=== PATIENT | male | born 1950 | race Caucasian/White ===

== ENCOUNTER 2023-07-10 16:15 | Outpatient (OUT) | payer BC, SELFPAY ==
--- NOTE | 2023-07-10 | XR_ITS ---
The [address] [address] Patient Name: ROBYN RUTH MRN: [id number] date: 1950 Sex: M Assigned Patient Location: LAB Current Patient Location: Accession/Order Number: [id number] Exam Date: 07/10/2023 16:40 Report Date: 07/11/2023 07:49 At the request of: NON-STAFF PHYSICIAN Procedure: XR abdomen 1V EXAMINATION: XR abdomen 1V HISTORY: Z87.442 ; history of kidney stones COMPARISON: XR KUB 03/08/2022: FINDINGS: KIDNEY/URETER - RIGHT: Atherosclerotic calcifications versus stones. KIDNEY/URETER - LEFT: Atherosclerotic calcifications versus stones overlying superior left hilum. PELVIS: Stable pelvic calcifications compatible with phleboliths. BOWEL: No abnormal dilation or deviation. BONES: No acute abnormality. OTHER: Negative. No abnormal gaseous collections. XR/XR abdomen 1V IMPRESSION: 1. Calcifications overlying the kidneys favor atherosclerotic disease. No convincing urinary tract calculi. Electronically authenticated by: AMY AMAYA Date: 07/11/2023 07:49
[2023-07-10 17:32] LABS: Prostate Specific Antigen Dx 1.84 ng/mL (<=4.00)
== END 2023-07-10 16:16 | disposition home or self-care (01) ==
PROVIDERS: PCP Family Medicine
DX: Z87.442 Personal history of urinary calculi (principal)
CPT/HCPCS: 36415; 74018; 84153

== ENCOUNTER 2024-07-07 09:49 | Outpatient (OUT) | payer BC, MEDICARE, SELFPAY ==
--- NOTE | 2024-07-07 | XR_ITS ---
The [address] [address] Patient Name: ROBYN RUTH MRN: [id number] date: 1950 Sex: M Assigned Patient Location: LAB Current Patient Location: Accession/Order Number: [id number] Exam Date: 07/07/2024 10:15 Report Date: 07/08/2024 06:24 At the request of: JACKI LITTLE Procedure: XR abdomen 1V EXAMINATION: XR abdomen 1V HISTORY: KIDNEY STONE COMPARISON: XR abdomen 07/10/2023 FINDINGS: KIDNEY/URETER - RIGHT: Several calcifications projecting over kidney. KIDNEY/URETER - LEFT: Several calcifications projecting over kidney. PELVIS: No appreciable ureteral stones. Stable pelvic calcifications. BOWEL: No abnormal dilation or deviation. BONES: No acute abnormality. OTHER: Negative. No abnormal gaseous collections. XR/XR abdomen 1V IMPRESSION: 1. Grossly stable bilateral nephrolithiasis versus artifact from overlying atherosclerotic disease. Electronically authenticated by: AMY AMAYA Date: 07/08/2024 06:24
[2024-07-07 12:28] LABS: Prostate Specific Antigen Dx 1.84 ng/mL (<=4.00)
== END 2024-07-07 09:50 | disposition home or self-care (01) ==
PROVIDERS: PCP Family Medicine; Visit Provider Urology
DX: N20.0 Calculus of kidney (principal); R97.20 Elevated prostate specific antigen [PSA]; Z80.42 Family history of malignant neoplasm of prostate
CPT/HCPCS: 36415; 74018; 84153

== ENCOUNTER 2025-01-31 05:11 | Emergency (ER) | payer BC, MEDICARE, SELFPAY ==
[2025-01-31] VITALS (24 sets, daily range): BP systolic 144–167; BP diastolic 61–82; PULSE 59–92; TEMP 37; O2SAT 88–97; BMI 26.4
--- OUTSIDE RECORDS SUMMARY | 2025-01-31 05:28 | XMS_ITS | CCD ---
Author Organization [facility] Care Team Providers Care Cement Side Laster Name Role Phone KIP BENAVIDES Unavailable Unavailable KIP BENAVIDES Unavailable Unavailable KIP BENAVIDES Unavailable Unavailable Milagro Sosa Unavailable Unavailable Unavailable MILAGRO SOSA Primary Care Physician Lonny Saleh Referring Unavailable Lonny Saleh Attending Unavailable Dr. Milagro Sosa Primary Care Unavailab MILAGRO Fall Primary Care Physician [phone] JAVED HURLEY Consulting Unavailable JAVED HURLEY Admitting Unavailable ROBERT ., DR MILAGRO Lara Primary Care Unavailable JAVED HURLEY Attending Unavailable ROBERT ., DR MILAGRO Lara Primary Care Unavailable VEENA Aguirre, DR AMERICA Schuster Attending Unavaila treasure Aguirre, DR AMERICA Schuster Consulting Unavaila treasure Aguirre, DR AMERICA Schuster Admitting Unavaila LESLY Glynn Consulting Unavailable Javed Hurley Primary Care Physician Milagro Sosa MD Primary Care Provider [phone] Lonny Saleh DO Unavailable [phone] LONNY SALEH Attending Unavailable MILAGRO SOSA Primary Care Unavailable Alejandro HAYES Attending Unavailable Javed Hurley Admitting Unavailable Javed Hurley Attending Unavailable Javed Hurley Attending Unavailable Javed Hurley Attending Unavailable Alejandro HAYES Attending Unavailable Allergies Allergy Classification Reported Allergen(s) Allergy Type Date of Onset Reaction(s) Facility (8 sources) cinnamon preparation; Translations: [CINNAMON] Drug Allergy 1 Unknown (qualifier value) [employer] Repository (9 sources) lisinopril; Translations: [LISINOPRIL] Drug Allergy 1 Coughing - function (qualifier value), Other [facility] Repository (5 sources) Lisinopril; Translations: [Zestril TABS] Drug Allergy [facility] DO Work Phone: (1 source) Lisinopril; Translations: [Zestril] Drug Allergy [facility] Repository Medications Current Medications Medication Drug Class(es) Dates Sig (Normalized) Sig (Original) amLODIPine 5 mg oral tablet (13 sources) Dihydropyridine Calcium Channel Pierre Start: 08-01-2020 End: 01-28-2025 take 1 tablet by mouth once daily amLODIPine 5 mg Tab See Instructions, TAKE 1 TABLET BY MOUTH EVERY DAY, # 90 tab(s), Refills(s) 3, Pharmacy: [facility] STORE [id number], 178, cm, 08/11/23 13:06:00 EDT, Height/Length Dosing, 86.8, kg, 08/11/23 13:06:00 EDT, Weight Dosing Start Date: 11/27/23 Status: Ordered aspirin 81 mg delayed release oral tablet (12 sources) Platelet Aggregation Inhibitor, Nonsteroidal Anti-inflammatory Drug Start: 08-01-2020 take 1 mg by mouth once daily aspirin 81 mg Oral EC Tab mg tab(s), Oral, Daily, Refills(s) 0 Start Date: 08/01/20 Status: Ordered Start: 08-01-2020 take 1 mg by mouth once daily aspirin 81 mg Oral EC Tab mg tab(s), Oral, Daily, Refills(s) 0 Start Date: 08/01/20 Status: Ordered dutasteride 0.5 mg oral capsule (12 sources) 5-alpha Reductase Inhibitor Start: 08-25-2024 take 1 capsule by mouth once daily dutasteride 0.5 mg Cap 0.5 mg = 1 cap(s), Oral, Daily, # 90 cap(s), Refills(s) 3, Pharmacy: [facility]/pharmacy #[id number], 173, cm, 07/16/24 8:27:00 EDT, Height/Length Dosing, 83.5, kg, 07/16/24 8:27:00 EDT, Weight Dosing Start Date: 08/25/24 Status: Ordered Start: 08-21-2021 take 1 capsule by mo [facility] once daily dutasteride 0.5 mg Cap 0.5 mg = 1 cap(s), Oral, Daily, # 90 cap(s), Refills(s) 3, [id number], cm, 08/11/23 13:06:00 EDT, Height/Length Dosing, 86.8, kg, 08/11/23 13:06:00 EDT, Weight Dosing Start Date: 08/27/23 Status: Ordered latanoprost 0.05 mg/ml ophthalmic solution (6 sources) Prostaglandin Analog Start: 02-04-2023 take 1 drop(s) into the eye(s) once daily at bedtime latanoprost Opth 0.005% Erica 1 drop(s), OPTH, Once a day (at bedtime), 2.5 mL, Refill(s) 0, each eye Start Date: 02/04/23 Status: Ordered take 1 drop(s) into the eye(s) once daily Latanoprost 0.005 % Ophthalmic Solution INSTILL 1 DROP INTO AFFECTED EYE(S) ONCE DAILY DIRECTED. Quantity: 0 Refills: 0 Ordered: 16-Jan-2023 DO Active metFORMIN hydrochloride 500 mg oral tablet (13 sources) Biguanide Start: 06-07-2024 End: 12-25-2024 MetFORMIN (Eqv-Glucophage XR) 500 mg oral tablet, extended release 1,000 mg = 2 tab(s), Oral, BID, # 120 tab(s), Refills(s) 0, [id number], cm, 07/16/24 8:27:00 EDT, Height/Length Dosing, 83.5, kg, 07/16/24 8:27:00 EDT, Weight Dosing Start Date: 11/25/24 Stop Date: 12/25/24 Status: Ordered Start: 05-07-2023 take 2 tablets by [facility] twice daily MetFORMIN (Eqv-Glucophage XR) 500 mg oral tablet, extended release See Instructions, TAKE 2 TABLETS BY MOUTH TWICE A DAY, # 360 tab(s), Refills(s) 0, Pharmacy: [facility] STORE [id number], 177.8, cm, 02/25/23 14:14:00 EDT, Height/Length Dosing, 85.6, kg, 02/25/23 14:14:00 EDT, Weight Dosing Start Date: 05/07/23 Status: Ordered Start: 08-01-2020 take 1 mg by mouth once daily metformin 500 mg ER Tab mg tab(s), Oral, Daily, Refills(s) 0 Start Date: 08/01/20 Status: Ordered take 1 tablet by hailee th four times daily at mealtime metFORMIN (Glucophage) 500 mg tablet Take 1 tablet (500 mg) by mouth 4 times a day with meals. 0 Active take 1 tablet by hailee th every twelve hours at mealtime metFORMIN HCl - 500 MG Oral Tablet TAKE 1 TABLET EVERY 12 HOURS WITH FOOD. Quantity: 0 Refills: 0 Ordered: 14-Jan-2022 Active metoprolol tartrate 25 mg oral tablet (13 sources) beta-Adrenergic Pierre Start: 01-29-2024 End: 01-28-2025 take 1 tablet by mouth once daily metoprolol tartrate (Lopressor) 25 mg tablet Indications: Hypertension, unspecified type Take 1 tablet (25 mg) by mouth once daily. 90 tablet 3 01/29/2024 01/28/2025 Active Start: 11-27-2023 take 1 tablet by hailee th once daily metoprolol 25 mg ER Tab 25 mg = 1 tab(s), Oral, Daily, # 90 tab(s), Refills(s) 4, Pharmacy: [facility]/pharmacy #[id number], 178, cm, 08/11/23 13:06:00 EDT, Height/Length Dosing, 86.8, kg, 08/11/23 13:06:00 EDT, Weight Dosing Start Date: 11/27/23 Status: Ordered Start: 08-01-2020 take 1 mg by mouth once daily metoprolol 25 mg ER Tab mg tab(s), Oral, Daily, Refills(s) 0 Start Date: 08/01/20 Status: Ordered take 1 tablet by hailee th twice daily Metoprolol Tartrate 25 MG Oral Tablet TAKE 1 TABLET TWICE DAILY. Quantity: 180 Refills: 3 Ordered: 14-Jan-2022 Lonny Saleh DO Active pravastatin sodium 80 mg oral tablet (13 sources) HMG-CoA Reductase Inhibitor Start: 08-01-2020 End: 01-28-2025 take 1 tablet by mouth once daily pravastatin 80 mg Tab 80 mg = 1 tab(s), Oral, Daily, # 90 tab(s), Refills(s) 4, Pharmacy: [facility]/pharmacy #[id number], 178, cm, 08/11/23 13:06:00 EDT, Height/Length Dosing, 86.8, kg, 08/11/23 13:06:00 EDT, Weight Dosing Start Date: 11/27/23 Status: Ordered tamsulosin hydrochloride 0.4 mg oral capsule (12 sources) alpha-Adrenergic Pierre Start: 08-25-2024 take 1 capsule by mouth once daily Flomax 0.4 mg Cap 0.4 mg = 1 cap(s), Oral, Daily, # 90 cap(s), Refills(s) 3, Pharmacy: [facility]/pharmacy #[id number], 173, cm, 07/16/24 8:27:00 EDT, Height/Length Dosing, 83.5, kg, 07/16/24 8:27:00 EDT, Weight Dosing Start Date: 08/25/24 Status: Ordered Start: 08-23-2021 take 1 capsule by mo [facility] once daily Flomax 0.4 mg Cap 0.4 mg = 1 cap(s), Oral, Daily, # 90 cap(s), Refills(s) 3, Pharmacy: [facility]/pharmacy #[id number], 178, cm, 08/11/23 13:06:00 EDT, Height/Length Dosing, 86.8, kg, 08/11/23 13:06:00 EDT, Weight Dosing Start Date: 08/27/23 Status: Ordered Timolol (12 sources) beta-Adrenergic Pierre Start: 08-01-2020 Timolo l Maleate (Eqv-Istalol) 0.5% ophthalmic solution drop(s), Eye-Both, Daily, Refill(s) 0 Start Date: 08/01/20 Status: Ordered take 1 drop(s) into the eye(s) every twelve hours timolol (Timoptic) 0.5 % ophthalmic solution Administer 1 drop into affected eye(s) every 12 hours. 0 Active take 1 drop(s) into the eye(s) once daily Timolol Maleate 0.5 % Ophthalmic Solutio n INSTILL 1 DROP IN BOTH EYES EVERY 12 HOURS DAILY. Quantity: 0 Refills: 0 Ordered: 14-Jan-2022 DO Active traZODone hydrochloride 150 mg oral tablet (12 sources) Serotonin Reuptake Inhibitor Start: 11-25-2024 End: 12-25-2024 take 1 tablet by mouth once daily at bedtime traZODONE 150 mg Tab 150 mg = 1 tab(s), Oral, Once a day (at bedtime), # 30 tab(s), Refills(s) 0, Pharmacy: [facility]/pharmacy #[id number], 173, cm, 07/16/24 8:27:00 EDT, Height/Length Dosing, 83.5, kg, 07/16/24 8:27:00 EDT, Weight Dosing Start Date: 11/25/24 Stop Date: 12/25/24 Status: Ordered Start: 05-23-2024 take 1 tablet by hailee th once daily at bedtime traZODONE 150 mg Tab See Instructions, TAKE 1 TABLET BY MOUTH EVERYDAY AT BEDTIME, # 90 tab(s), Refills(s) 1, Pharmacy: [facility] STORE [id number], 178, cm, 08/11/23 13:06:00 EDT, Height/Length Dosing, 86.8, kg, 08/11/23 13:06:00 EDT, Weight Dosing Start Date: 05/23/24 Status: Ordered Start: 05-22-2023 take 1 tablet by hailee th once daily at bedtime traZODONE 150 mg Tab See Instructions, TAKE 1 TABLET BY MOUTH EVERYDAY AT BEDTIME, # 90 tab(s), Refills(s) 1, Pharmacy: [facility] STORE [id number], 177.8, cm, 02/25/23 14:14:00 EDT, Height/Length Dosing, 85.6, kg, 02/25/23 14:14:00 EDT, Weight Dosing Start Date: 05/22/23 Status: Ordered Start: 08-01-2020 take 1 mg by mouth twice daily traZODONE 100 mg Tab mg tab(s), Oral, BID, Refills(s) 0 Start Date: 08/01/20 Status: Ordered take 1 tablet by hailee th once daily traZODone (Desyrel) 100 mg tablet Take 1 tablet (100 mg) by mouth once daily. 0 Active valsartan 40 mg oral tablet (13 sources) Angiotensin 2 Receptor Pierre Start: 08-01-2020 End: 01-28-2025 take 1 tablet by mouth twice daily valsartan 40 mg Tab 40 mg = 1 tab(s), Oral, BID, # 180 tab(s), Refills(s) 4, Pharmacy: [facility]/pharmacy #[id number], 178, cm, 08/11/23 13:06:00 EDT, Height/Length Dosing, 86.8, kg, 08/11/23 13:06:00 EDT, Weight Dosing Start Date: 11/27/23 Status: Ordered take 1 tablet by mouth once marino y Valsartan 40 MG Oral Tablet TAKE 1 TABLET DAILY. Quantity: 90 Refills: 3 Ordered: 14-Jan-2022 Lonny Saleh DO Active Problems Active Problems Problem Classification Problem Date Documented Date Episodic/Chronic Calculus of urinary tract (15 sources) History of calculus of kidney; Translations: [Personal history of urinary calculi] Onset: 03-08-2022 Episodic Cardiac dysrhythmias (18 sources) Paroxysmal atrial fibrillation; Translations: [Atrial fibrillation] Onset: 12-02-2023 07-26-2020 Chronic Complication of device; implant or graft (4 sources) Arteriosclerosis of arterial coronary artery bypass graft; Translations: [Atherosclerosis of coronary artery bypass graft(s) without angina pectoris] Onset: 12-02-2023 01-29-2024 Chronic Coronary atherosclerosis and other heart disease (15 sources) Coronary arteriosclerosis; Translations: [Coronary atherosclerosis of unspecified type of vessel, [place] or graft] Onset: 12-02-2023 07-26-2020 Chronic Diabetes mellitus without complication (12 sources) Diabetes mellitus; Translations: [Diabetes mellitus without mention of complication, type II or unspecified type, not stated as uncontrolled] Onset: 12-02-2023 07-26-2020 Chronic Diabetes mellitus without complication (2 sources) Diabetes mellitus without complication; Translations: [Type 2 diabetes mellitus without complications ( )] Onset: 11-11-2016 Disorders of lipid metabolism (15 sources) Hyperlipidemia; Translations: [Other and unspecified hyperlipidemia] Onset: 12-02-2023 07-26-2020 Chronic Essential hypertension (15 sources) Hypertensive disorder; Translations: [Unspecified essential hypertension] Onset: 12-02-2023 07-26-2020 Chronic Genitourinary symptoms and ill-defined conditions (14 sources) Blood in urine; Translations: [Hematuria, unspecified] Onset: 03-12-2022 Episodic Hyperplasia of prostate (9 sources) Benign prostatic hypertrophy with outflow obstruction; Translations: [Benign prostatic hyperplasia with lower urinary tract symptoms] Onset: 03-12-2022 Chronic Miscellaneous mental health disorders (5 sources) Primary insomnia 02-04-2023 Chronic Other and ill-defined cerebrovascular disease (6 sources) Cerebrovascular disease 07-26-2020 Chronic Other circulatory disease (7 sources) History of aortofemoral bypass surgery; Translations: [Personal history of surgery to heart and great vessels, presenting hazards to health] Onset: 12-02-2023 01-29-2024 Chronic Other circulatory disease (2 sources) Presence of other vascular implants and grafts; Translations: [Presence of other vascular implants and grafts] Onset: 12-02-2023 Chronic Other diseases of kidney and ureters (1 source) Urinary tract obstruction; Translations: [Other obstructive and reflux uropathy] Onset: 03-12-2022 Episodic Other nutritional; endocrine; and metabolic disorders (6 sources) Overweight in adulthood with body mass index of 25 or more but less than 30; Translations: [Overweight] 12-06-2024 Episodic Other nutritional; endocrine; and metabolic disorders (1 source) Body mass index 25-29 - overweight 12-06-2024 Episodic Other screening for suspected conditions (not mental disorders or infectious disease) (13 sources) Raised prostate specific antigen; Translations: [Elevated prostate specific antigen [PSA]] Onset: 03-08-2022 Episodic Other upper respiratory infections (1 source) Acute upper respiratory infection 02-25-2023 Episodic Peripheral and visceral atherosclerosis (12 sources) Peripheral vascular disease, unspecified; Translations: [PAD (peripheral artery disease)] Onset: 12-02-2023 07-26-2020 Chronic Residual codes; unclassified (6 sources) FH: Cardiovascular disease 07-26-2020 Episodic Residual codes; unclassified (1 source) Insomnia 07-26-2020 Episodic Residual codes; unclassified (1 source) Pain, unspecified; Translations: [PAIN UNSPECIFIED] Onset: 03-01-2023 Episodic Residual codes; unclassified (2 sources) Family history of cancer; Translations: [Family history of malignant neoplasm of prostate] Onset: 07-11-2023 Episodic Residual codes; unclassified (3 sources) Family history of prostate cancer 07-11-2023 Episodic Screening and history of mental health and substance abuse codes (9 sources) Ex-smoker; Translations: [Personal history of tobacco use] Onset: 01-29-2024 01-29-2024 Episodic Transient cerebral ischemia (6 sources) 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 Unclassified (1 source) Encounter for screening for malignant neoplasm of prostate / Z12.5(ICD-10) Onset: 11-18-2017 Unclassified (3 sources) COUGH, UNSPECIFIED; Translations: [COUGH, UNSPECIFIED] Onset: 03-01-2023 Unclassified (1 source) CONTACT W/AND (SUSP) EXPOS COVID-19; Translations: [CONTACT W/AND (SUSP) EXPOS COVID-19] Onset: 03-01-2023 Unclassified (1 source) Non-smoker 12-06-2024 Past or Other Problems Problem Classification Problem Date Documented Da te Episodic/Chronic Unclassified (1 source) Encounter for screening for malignant neoplasm of prostate; Translations: [Encounter for screening for malignant neoplasm of prostate] Onset: 11-18-2017 Unclassified (1 source) COUGH, UNSPECIFIED; Translations: [COUGH, UNSPECIFIED] Onset: 02-25-2023 Unclassified (1 source) Onset: 01-29-2024 01-29-2024 Results Test Name Value Interpretation Reference Range Facility CBC w/ Auto Diffon 5 Basophils/100 WBC (Bld) 0.3 % Normal 0.0-2.0 [facility] Comment on above: Performed By: #### 2 [id number] #### [facility] [address] [place] [address] Basophils/Leukocytes Auto (Bld) [Pure # fraction] 0.0 E9/L Normal 0.0-0.2 [facility] Comment on above: Performed By: #### 2 [id number] #### [facility] [address] [place] [address] Eosinophils (Bld) [#/Vol] 0.1 E9/L Normal 0.0-0.5 [facility] Comment on above: Performed By: #### 2 [id number] #### [facility] [address] [place] [address] Eosinophils/100 WBC (Bld) 0.9 % Normal 0.0-8.0 [facility] Comment on above: Performed By: #### 2 [id number] #### [facility] [address] [place] [address] Erythrocyte distribution width (RBC) [Ratio] 13.9 % Normal 10.9-14.2 [facility] Comment on above: Performed By: #### 2 [id number] #### [facility] [address] [place] [address] Hematocrit (Bld) [Volume fraction] 45.7 % Normal 37.7-49.0 [facility] Comment on above: Performed By: #### 2 [id number] #### [facility] [address] [place] [address] Hemoglobin (Bld) [Mass/Vol] 15.4 g/dL Normal 13.5-17.5 [facility] Comment on above: Performed By: #### 2 [id number] #### [facility] [address] [place] [address] Lymphocytes (Bld) [#/Vol] 1.7 E9/L Normal 1.0-4.0 [facility] Comment on above: Performed By: #### 2 [id number] #### [facility] [address] [place] [address] Lymphocytes/100 WBC (Bld) 21.5 % Normal 14.0-50.0 [facility] Comment on above: Performed By: #### 2 [id number] #### [facility] [address] [place] [address] MCH (RBC) [Entitic mass] 31.7 pg Normal 27.0-34.0 [facility] Comment on above: Performed By: #### 2 [id number] #### [facility] [address] [place] [address] MCHC (RBC) [Mass/Vol] 33.8 g/dL Normal 31.4-36.0 [facility] Comment on above: Performed By: #### 2 [id number] #### [facility] [address] [place] [address] MCV (RBC) [Entitic vol] 93.7 fL Normal 80.0-100.0 [facility] Comment on above: Performed By: #### 2 [id number] #### [facility] [address] [place] [address] Monocytes (Bld) [#/Vol] 0.3 E9/L Normal 0.2-1.0 [facility] Comment on above: Performed By: #### 2 [id number] #### [facility] [address] [place] [address] Neutrophils (Bld) [#/Vol] 5.7 E9/L Normal 2.0-7.5 [facility] Comment on above: Performed By: #### 2 [id number] #### [facility] [address] [place] [address] Neutrophils/100 WBC (Bld) 73.3 % Normal 36.0-75.0 [facility] Comment on above: Performed By: #### 2 [id number] #### [facility] [address] [place] [address] Platelet 264.0 E9/L Normal 150.0-500.0 [facility] Comment on above: Performed By: #### 2 [id number] #### [facility] [address] [place] [address] Platelet mean volume (Bld) [Entitic vol] 8.5 fL Normal 6.4-10.8 [facility] Comment on above: Performed By: #### 2 [id number] #### [facility] [address] [place] [address] RBC (Bld) [#/Vol] 4.9 E12/L Normal 4.3-5.9 [facility] Comment on above: Performed By: #### 2 [id number] #### [facility] [address] [place] [address] WBC corrected for nucl RBC Auto (Bld) [#/Vol] 7.8 E9/L Normal 4.0-11.0 [facility] Comment on above: Performed By: #### 2 [id number] #### [facility] [address] [place] [address] CMPon 12-07-2024 Albumin [Mass/Vol] 4.7 g/dL Normal 3.3-5.0 [facility] Comment on above: Performed By: #### 2 [id number] #### [facility] [address] [place] [address] Albumin/Globulin (S) [Mass conc ratio] 1.7 Normal 1.1-2.2 [facility] Comment on above: Performed By: #### 2 [id number] #### [facility] [address] [place] [address] ALP [Catalytic activity/Vol] 64 Int._Unit/L Normal 21-98 [facility] Comment on above: Performed By: #### 2 [id number] #### [facility] [address] [place] [address] ALT No additional P-5'-P [Catalytic activity/Vol] 18 Int._Unit/L Normal 6-46 [facility] Comment on above: Performed By: #### 2 [id number] #### [facility] [address] [place] [address] Anion gap [Moles/Vol] 13 mmol/L Normal 6-16 [facility] Comment on above: Performed By: #### 2 [id number] #### [facility] [address] [place] [address] AST [Catalytic activity/Vol] 19 Int._Unit/L Normal 5-43 [facility] Comment on above: Performed By: #### 2 [id number] #### [facility] [address] [place] [address] Bilirubin [Mass/Vol] 0.8 mg/dL Normal 0.0-1.1 [facility] Comment on above: Performed By: #### 2 [id number] #### [facility] [address] [place] [address] Calcium [Mass/Vol] 9.7 mg/dL Normal 8.9-11.1 [facility] Comment on above: Performed By: #### 2 [id number] #### [facility] [address] [place] [address] Chloride [Moles/Vol] 104 mmol/L Normal 101-111 [facility] Comment on above: Performed By: #### 2 [id number] #### [facility] [address] [place] [address] CO2 [Moles/Vol] 25 mmol/L Normal 21-31 [facility] Comment on above: Performed By: #### 2 [id number] #### [facility] [address] [place] [address] Creatinine [Mass/Vol] 0.9 mg/dL Normal 0.5-1.3 [facility] Comment on above: Performed By: #### 2 [id number] #### [facility] [address] [place] [address] Globulin (S) [Mass/Vol] 2.7 g/dL Normal 1.4-4.0 [facility] Comment on above: Performed By: #### 2 [id number] #### [facility] [address] [place] [address] Glucose [Mass/Vol] 164 mg/dL Normal 55-199 [facility] Comment on above: Performed By: #### 2 [id number] #### [facility] [address] [place] [address] Potassium [Moles/Vol] 4.4 mmol/L Normal 3.5-5.3 [facility] Comment on above: Performed By: #### 2 [id number] #### [facility] [address] [place] [address] Protein [Mass/Vol] 7.4 g/dL Normal 6.0-7.8 [facility] Comment on above: Performed By: #### 2 [id number] #### [facility] [address] [place] [address] Sodium [Moles/Vol] 138 mmol/L Normal 135-145 [facility] Comment on above: Performed By: #### 2 [id number] #### [facility] [address] [place] [address] Urea nitrogen [Mass/Vol] 21 mg/dL Normal 5-21 [facility] Comment on above: Performed By: #### 2 [id number] #### [facility] [address] [place] [address] Urea nitrogen/Creatinine [Mass ratio] 23 No Units High 10-20 [facility] Comment on above: Performed By: #### 2 [id number] #### [facility] [address] [place] [address] [id number] 12-07-2024 HbA1c (Bld) [Mass fraction] 6.9 % High <=5.9 [facility] Comment on above: Performed By: #### 7 [id number] #### [facility] [address] [place] [address] Lipid Panelon 12-07-2024 Cholesterol [Mass/Vol] 121 mg/dL Normal 120-200 [facility] Comment on above: Performed By: #### 2 [id number] #### [facility] [address] [place] [address] Cholesterol in HDL [Mass/Vol] 44 mg/dL Invalid Interpretation Code [facility] Comment on above: Result Comment: '>= 60 LOW RISK' '<= 40 HIGH RISK' Performed By: #### 2 [id number] #### [facility] [address] [place] [address] Cholesterol in LDL [Mass/Vol] 60 mg/dL Normal <=129 [facility] Comment on above: Performed By: #### 2 [id number] #### [facility] [address] [place] [address] Cholesterol in VLDL [Mass/Vol] 45 mg/dL High 7-40 [facility] Comment on above: Performed By: #### 2 [id number] #### [facility] [address] [place] [address] Triglyceride [Mass/Vol] 223 mg/dL High <=149 [facility] Comment on above: Performed By: #### 2 [id number] #### [facility] [address] [place] [address] U Microalbon 12-07-2024 Albumin DL <= 20 mg/L (U) [Mass/Vol] 2.7 mg/dL High 0.0-1.9 [facility] Comment on above: Performed By: #### [id number] #### [facility] [address] [place] [address] eGFRon 12-07-2024 eGFR 89 mL/min/1.73 m2 Normal >=59 [facility] Comment on above: Performed By: #### [id number] #### [facility] [address] [place] [address] Ambulatory Visit Summaryon 0 12-06-2024 Ambulatory Visit Summary Ambulatory Visit Summary ROBYN SALAZAR :1950 Visit Date:12/06/2024 Ambulatory Visit Instructions Your Diagnosis Atrial flutter Paroxysmal atrial fibrillation Type 2 diabetes mellitus without complication, without long-term current use of insulin Elevated PSA Hypertension CAD (coronary artery disease) BMI 28.0-28.9,adult Overweight (BMI 25.0-29.9) Nonsmoker Primary insomnia Your Care Team Attending Physician - Javed Hurley MD Primary Care Physician - Javed Hurley MD This Is Your Medications List amlodipine (amLODIPine 5 mg Tab) aspirin (aspirin 81 mg Oral EC Tab) dutasteride (dutasteride 0.5 mg Cap) latanoprost ophthalmic (latanoprost Opth 0.005% Erica) metformin (MetFORMIN (Eqv-Glucophage XR) 500 mg oral tablet, extended release) metformin (MetFORMIN (Eqv-Glucophage XR) 500 mg oral tablet, extended release) metoprolol (metoprolol 25 mg ER Tab) pravastatin (pravastatin 80 mg Tab) tamsulosin (Flomax 0.4 mg Cap) timolol ophthalmic (Timolol Maleate (Eqv-Istalol) 0.5% ophthalmic solution) trazodone (traZODONE 150 mg Tab) valsartan (valsartan 40 mg Tab) Procedures Performed Cystoscope (09/22/2019), Femoral artery bypass, History of hernia repair, Quadruple coronary artery bypass graft, Tonsillectomy and adenoidectomy, Transrectal biopsy of prostate using ultrasound (US) guidance. Discharge Vitals Temperature (Tympanic) 36.9 ???C Heart Rate (Peripheral) 68 Respiratory Rate 18 Blood Pressure 124/80 Height 173 cm Height 68 in Weight 86.5 kg Weight 190.7 lb BMI 28.9 What to do next Scheduled Follow-Up Appointments Friday 2:00 PM EDT With: Nemesio ROONEY, Javed Rai Where: [facility] [address] [address]- Friday 8:00 AM EDT With: SIDNEY ROONEY, Alejandro Haddad Where: [facility] [address] [place] [address]- Medications What How Much When Instructions Unchanged amlodipine (amLODIPine 5 mg Tab) See instructions TAKE 1 TABLET BY MOUTH EVERY DAY Unchanged aspirin (aspirin 81 mg Oral EC Tab) By Mouth Every day Unchanged dutasteride (dutasteride 0.5 mg Cap) 1 Capsules By Mouth Every day Unchanged latanoprost ophthalmic (latanoprost Opth 0.005% Erica) 1 Drops Ophthalmic Once a day (at bedtime) each eye Unchanged metformin (MetFORMIN (Eqv-Glucophage XR) 500 mg oral tablet, extended release) 2 Tablets By Mouth 2 times a day Duration: 30 Days Unchanged metformin (MetFORMIN (Eqv-Glucophage XR) 500 mg oral tablet, extended release) See instructions TAKE 2 TABLETS BY MOUTH TWICE A DAY Unchanged metoprolol (metoprolol 25 mg ER Tab) 1 Tablets By Mouth Every day Unchanged pravastatin (pravastatin 80 mg Tab) 1 Tablets By Mouth Every day Unchanged tamsulosin (Flomax 0.4 mg Cap) 1 Capsules By Mouth Every day Unchanged timolol ophthalmic (Timolol Maleate (Eqv-Istalol) 0.5% ophthalmic solution) Both eyes Every day Unchanged trazodone (traZODONE 150 mg Tab) 1 Tablets By Mouth Once a day (at bedtime) Duration: 30 Days Unchanged valsartan (valsartan 40 mg Tab) 1 Tablets By Mouth 2 times a day Allergies Cinnamon (Unknown) Zestril (Coughing) Problems Ongoing - Any problem that you are currently receiving treatment for. Atrial flutter BMI 28.0-28.9,adult BPH with obstruction/lower urinary tract symptoms CAD (coronary artery disease) Cerebrovascular disease Elevated PSA Family history of cardiovascular disease Family history of prostate cancer Hematuria History of kidney stones Hypertension Kidney stones Mixed hyperlipidemia Nocturia Nonsmoker Overweight (BMI 25.0-29.9) Paroxysmal atrial fibrillation Primary insomnia PVD (peripheral vascular disease) with claudication S/P CABG x 4 Subclavian steal syndrome Type 2 diabetes mellitus without complication, without long-term current use of insulin Patient Survey You may receive a survey via text or e-mail asking about your office visit. Please share your experience with us by completing your survey. We appreciate your feedback and thank you for choosing us for your care. Normal [facility] Family Medicine Office/Clini c Noteon 12-06-2024 Family Medicine Office/Clinic Note Family Medicine Office/Clinic Note Chief Complaint Annual Med Check Concerns regarding elevated blood sugar levels and paroxysmal atrial fibrillation. [facility] Staff Pt presents today for annual med refills. Patient is here for follow up on hypertension. How often are you checking your blood pressure? Doesnt check BP at home What are your average readings? N/A, Not checking at home Yearly BMP: Nothing in chart nor on [facility] portal Patient is here for follow up on Diabetes. How often are you checking your blood sugars? _? yes What are your average readings?_160? Are you compliant with your diet? yes? Do you exercise? yes? Are you compliant with your medications or having difficulty affording your medications? no? Do you have any of the following symptoms? Vision problems? no? Lightheadedness? no? Paresthesias, Ulcerations or sores? no? Hgb A1C %: 6.6 % High (08/11/23 13:34:00) Lt side ribs are sore. Fell recently on the ice. History of Present Illness The patient is a 74 year old male presenting with elevated blood sugar levels. The patient reports elevated blood sugars measuring in the 160s, with a recent measurement of 168. He has been managing his diabetes with metformin but acknowledges it might need to be adjusted. The patient has a past medical history of type 2 diabetes mellitus without complications and is not currently on insulin therapy. Additionally, the patient discusses management of atrial flutter, which is not currently treated with anticoagulation therapy. He sees a director industrial nursing for this condition. He reports episodes of paroxysmal atrial fibrillation in the past. He has a history of coronary artery disease and hypertension, but his blood pressure readings have been stable. Furthermore, the patient has expressed concerns regarding renal problems due to elevated PSA levels, managed under the care of a urologist. Lastly, he reports issues with sleep, waking multiple times a night, and is on trazodone for sleep improvement. - Advised regular follow-up for diabetes and evaluation of HbA1c to inform potential medication adjustment. - Encouraged continuation of care under specialists for atrial flutter and elevated PSA. - Discussed strategies to improve sleep quality, including adjusted dosing regimen for trazodone. Review of Systems PHQ Score Initial Depression Screen Score: 0 SCORE Physical Exam Vitals & Measurements T: 36.9 ???C(Tympanic) HR: 68(Peripheral) RR: 18 BP: 124/80 SpO2: 96% HT: 68 in HT: 173 cm WT: 86.5 kg WT: 190.7 lb BMI: 28.9 General: alert, no acute distress ENMT: oral mucosa moist Cardiovascular: Regular rate and rhythm, normal peripheral perfusion Respiratory: Lungs clear to auscultation, respirations non labored Extremities: no deformity, no trauma Neurological: oriented x 4, level of consciousness appropriate for age, CN II-XII intact, motor strength equal & normal bilaterally, speech normal Abdomen: Soft, Non-tender, Non-distended, + Bowel sounds Assessment/Plan 1. Atrial flutter (I48.92: Unspecified atrial flutter) Stable. Sees Cardiology. Ordered: CBC w/ Auto Diff Comprehensive Metabolic Panel HgbA1c Lipid Panel Microalbumin Level Urine 2. Paroxysmal atrial fibrillation (I48.0: Paroxysmal atrial fibrillation) The patient continues to monitor this under the care of a director industrial nursing. No anticoagulant therapy at present for atrial flutter has been discussed. Continued monitoring of cardiac status advised. Ordered: CBC w/ Auto Diff Comprehensive Metabolic Panel HgbA1c Lipid Panel Microalbumin Level Urine 3. Type 2 diabetes mellitus without complication, without long-term current use of insulin (E11.9: Type 2 diabetes mellitus without complications) Current management includes metformin. Consideration for dosage adjustment or additional therapy pending recent HbA1c results. Blood sugar management strategies discussed. Ordered: CBC w/ Auto Diff Comprehensive Metabolic Panel HgbA1c Lipid Panel Microalbumin Level Urine 4. Elevated PSA (R97.20: Elevated prostate specific antigen [PSA]) Under the care of a urologist. No current therapy changes discussed. Ordered: CBC w/ Auto Diff Comprehensive Metabolic Panel HgbA1c Lipid Panel Microalbumin Level Urine 5. Hypertension (I10: Essential (primary) hypertension) Blood pressure currently stable. No changes in therapy discussed. Ordered: CBC w/ Auto Diff Comprehensive Metabolic Panel HgbA1c Lipid Panel Microalbumin Level Urine 6. CAD (coronary artery disease) (I25.10: Atherosclerotic heart disease of [place] coronary artery without angina pectoris) Continue ASA and statin. Follow up with cardiology. Ordered: CBC w/ Auto Diff Comprehensive Metabolic Panel HgbA1c Lipid Panel Microalbumin Level Urine 7. BMI 28.0-28.9,adult (Z68.28: Body mass index [BMI] 28.0-28.9, adult) BMI education added Ordered: CBC w/ Auto Diff Comprehensive Metabolic Panel HgbA1c (more content not included)... Normal [facility] Comment on above: Result Comment: Elec tronically Signed By: Javed Hurley MD\.br\Date and Time Signed: 12/06/24 14:48 EST Ambulatory Visit Summaryon 0 07-16-2024 Ambulatory Visit Summary Ambulatory Visit Summary ROBYN SALAZAR :1950 Visit Date:07/16/2024 Ambulatory Visit Instructions Your Diagnosis Elevated PSA BPH with obstruction/lower urinary tract symptoms Kidney stones Family history of prostate cancer Tests Performed XR Abdomen 1 View -- Results Pending -- Please visit your patient portal for your results or contact your primary care physician. Your Care Team Attending Physician - Alejandro HAYES MD Primary Care Physician - Javed Hurley MD This Is Your Medications List dutasteride (dutasteride 0.5 mg Cap) tamsulosin (Flomax 0.4 mg Cap) Contact prescribing physician if questions or concerns amlodipine (amLODIPine 5 mg Tab) aspirin (aspirin 81 mg Oral EC Tab) latanoprost ophthalmic (latanoprost Opth 0.005% Erica) metformin (MetFORMIN (Eqv-Glucophage XR) 500 mg oral tablet, extended release) metoprolol (metoprolol 25 mg ER Tab) pravastatin (pravastatin 80 mg Tab) timolol ophthalmic (Timolol Maleate (Eqv-Istalol) 0.5% ophthalmic solution) trazodone (traZODONE 150 mg Tab) valsartan (valsartan 40 mg Tab) Procedures Performed Cystoscope (09/22/2019), Femoral artery bypass, History of hernia repair, Quadruple coronary artery bypass graft, Tonsillectomy and adenoidectomy, Transrectal biopsy of prostate using ultrasound (US) guidance. Discharge Vitals Heart Rate (Peripheral) 74 Blood Pressure 100/74 Height 173 cm Height 68 in Weight 83.5 kg Weight 183.7 lb BMI 27.9 What to do next You Need to Schedule the Following Appointments Follow Up with SIDNEY ROONEY, YURIY Finnegan When: Where: [address] [place], [place] [id number]- Medications What How Much When Instructions Unchanged dutasteride (dutasteride 0.5 mg Cap) 1 Capsules By Mouth Every day Unchanged tamsulosin (Flomax 0.4 mg Cap) 1 Capsules By Mouth Every day Unchanged amlodipine (amLODIPine 5 mg Tab) See instructions TAKE 1 TABLET BY MOUTH EVERY DAY Contact prescribing physician if questions or concerns Unchanged aspirin (aspirin 81 mg Oral EC Tab) By Mouth Every day Contact prescribing physician if questions or concerns Unchanged latanoprost ophthalmic (latanoprost Opth 0.005% Erica) 1 Drops Ophthalmic Once a day (at bedtime) each eye Contact prescribing physician if questions or concerns Unchanged metformin (MetFORMIN (Eqv-Glucophage XR) 500 mg oral tablet, extended release) See instructions TAKE 2 TABLETS BY MOUTH TWICE A DAY Contact prescribing physician if questions or concerns Unchanged metoprolol (metoprolol 25 mg ER Tab) 1 Tablets By Mouth Every day Contact prescribing physician if questions or concerns Unchanged pravastatin (pravastatin 80 mg Tab) 1 Tablets By Mouth Every day Contact prescribing physician if questions or concerns Unchanged timolol ophthalmic (Timolol Maleate (Eqv-Istalol) 0.5% ophthalmic solution) Both eyes Every day Contact prescribing physician if questions or concerns Unchanged trazodone (traZODONE 150 mg Tab) See instructions TAKE 1 TABLET BY MOUTH EVERYDAY AT BEDTIME Contact prescribing physician if questions or concerns Unchanged valsartan (valsartan 40 mg Tab) 1 Tablets By Mouth 2 times a day Contact prescribing physician if questions or concerns Allergies Cinnamon (Unknown) Zestril (Coughing) Problems Ongoing - Any problem that you are currently receiving treatment for. Atrial flutter BPH with obstruction/lower urinary tract symptoms CAD (coronary artery disease) Cerebrovascular disease Elevated PSA Family history of cardiovascular disease Family history of prostate cancer Hematuria History of kidney stones Hypertension Kidney stones Mixed hyperlipidemia Nocturia Paroxysmal atrial fibrillation Primary insomnia PVD (peripheral vascular disease) with claudication S/P CABG x 4 Subclavian steal syndrome Type 2 diabetes mellitus without complication, without long-term current use of insulin Patient Survey You may receive a survey via text or e-mail asking about your office visit. Please share your experience with us by completing your survey. We appreciate your feedback and thank you for choosing us for your care. Education Materials Prostate Cancer Screening Prostate cancer screening is testing that is done to check for the presence of prostate cancer in men. The prostate gland is a walnut-sized gland that is located below the bladder and in front of the rectum in males. The function of the prostate is to add fluid to semen during ejaculation. Prostate cancer is one of the most common types of cancer in men. Who should have prostate cancer screening? Screening recommendations vary based on age and other risk factors, as well as between the professional organizations who make the recommendations. In general, screening is recommended if: ? You are age 50 to 70 and have an average risk for prostate cancer. You should talk with your health care prov (more content not included)... Normal [facility] Urology Office/Clinic Noteon 07-16-2024 Urology Office/Clinic Note Urology Office/Clinic Note Chief Complaint 1 yr f/u w/ PSA HPI Staff 74 yr old here for 1 yr follow up w/ PSA and KUB. KUB done 07/07/24. DX:Elevated PSA, Kidney Stones, BPH, Hematuria & Nocturia, family hx of prostate cancer *Dutasteride 0.5mg qd & Tamsulosin 0.4mg qd therapy. PSA 07/07/24- 1.84 Dysuria: _no Incomplete bladder emptying: _no Hematuria: _no Frequency: _q3-4hrs Urgency: _yes Nocturia: _1x Stream: _weak at times Leaking: _no Post void dripping: _no Wearing pads/ Depends: _no Urge incontinence: _at times Stress incontinence: _no Incontinence without Sensory Awareness: _no Abdominal pain: _no Flank pain: _no Sexual complaints: _ History of Present Illness Tests reviewed: reviewed UA, KUB, PSA. I have reviewed the previous health record information and history for this patient from Dr. Hayes. I have reviewed and verified the staff HPI to be accurate for this encounter. There have been no associated fever, chills, flank pain, or blood in the urine. Denies any urinary infections since last encounter. Review of Systems PHQ Score Initial Depression Screen Score: 0 SCORE ROS - Provider Constitutional: denies weight loss, denies hot flashes. Eyes: denies eye problems. Gastrointestinal: denies nausea, denies vomiting. Cardiovascular: denies chest pain or angina. Integumentary: no dryness Musculoskeletal: denies musculoskeletal symptoms. ENMT: denies otolaryngeal symptoms. Respiratory: no shortness of breath. Heme/Lymph: denies easy bleeding tendency, denies easy bruising tendency. Psychiatric: no confusion, no anxiety. Genitourinary: See HPI. Physical Exam Vitals & Measurements HR: 74(Peripheral) BP: 100/74 HT: 68 in HT: 173 cm WT: 83.5 kg WT: 183.7 lb BMI: 27.9 General Appearance: alert, no distress, well nourished, well developed male. Assessment/Plan Prior DLS pt. Daily Aspirin. 1. Elevated PSA (R97.20: Elevated prostate specific antigen [PSA]) PSA: 06/28/20 - 2.28 (4.56) 03/08/22 - 2.11 (4.22) 07/10/23 - 1.84 (3.68) 07/07/24 - 1.84 (3.68) ~Dutasteride therapy S/p TRUS/bx 02/2017 done in [place] - benign. Added to surgical hx today. PSA remains stable. Will cont to monitor. -PSA & ALEX in 12 mos 2. BPH with obstruction/lower urinary tract symptoms (N40.1: Benign prostatic hyperplasia with lower urinary tract symptoms) Taking Flomax 0.4mg qd and Dutasteride 0.5mg qd. Refills provided. UA today negative for infection or blood. Decent stream, weak at times. Feels he empties. Voids every few hours. Denies gross hematuria or infections. -Cont meds wo changes -Cont symptomatic monitoring 3. Kidney stones (N20.0: Calculus of kidney) Hx of surgical management >40 years ago. Last stone event has been >4 years ago. KUB 07/10/23 [facility] - no convincing urinary tract calculi, remains stable since KUB 03/2022. KUB 07/07/24 [facility] - several calcifications projecting over BL kidneys. No measurements provided. Stable. Unable to view images today due to system malfunction Denies pain or passage of stones since last encounter. -KUB in 12 mos 4. Family history of prostate cancer (Z80.42: Family history of malignant neoplasm of prostate) Brother, diagnosed in mid 80s. Believes it is metastatic to bone. Follow-up With When Contact Information SIDNEY ROONEY, Alejandro Haddad, URL [address] [place] [address]- Additional Instructions: 1 year w/ PSA, ALEX, KUB Patient Education Prostate Cancer Screening Dietary Guidelines to Help Prevent Kidney Stones I, Mckenzie Sharpe, personally scribed for Dr. Hayes on 07/16/2024 09:11:21. . Documentation recorded by the scribe, Mckenzie Sharpe, accurately reflects the services(s) I performed and decisions made by me. Authenticated by Dr. Hayes on 07/16/2024 09:13:38. Problem List/Past Medical History Ongoing Atrial flutter BPH with obstruction/lower urinary tract symptoms CAD (coronary artery disease) Cerebrovascular disease Elevated PSA Family history of cardiovascular disease Family history of prostate cancer Hematuria History of kidney stones Hypertension Kidney stones Mixed hyperlipidemia Nocturia Paroxysmal atrial fibrillation Primary insomnia PVD (peripheral vascular disease) with claudication S/P CABG x 4 Subclavian steal syndrome Type 2 diabetes mellitus without complication, without long-term current use of insulin Historical No qualifying data Procedure/Surgical History Cystoscope (09/22/2019), Femoral artery bypass, History of hernia repair, Quadruple coronary artery bypass graft, Tonsillectomy and adenoidectomy, Transrectal biopsy of prostate using ultrasound (US) guidance. Medications amLODIPine 5 mg Tab, See Instructions aspirin 81 mg Oral EC Tab, Oral, Daily dutasteride 0.5 mg Cap, 0.5 mg= 1 cap(s), Oral, Daily, 3 refills Flomax 0.4 mg Cap, 0.4 mg= 1 cap(s), Oral, Daily, 3 refills (more content not included)... Normal [facility] Comment on above: Result Comment: Elec tronically Signed By: Alejandro HAYES MD\.br\Date and Time Signed: 07/16/24 09:13 EDT\.br\Electronically Co-Signed By: Mckenzie Sharpebr\Date and Time Co-Signed: 07/16/24 09:11 EDT Consultation Noteon 02-16-20 Consultation Note [id number] Normal [facility] RESPIRATORY PANEL PLUSon Adenovirus Not detected Normal NOT DETECTED [facility] Comment on above: Performed By: #### R SPLUS #### [facility] [address] [place] [address] Dr. Jos Angulo Parapertusis Not detected Normal NOT DETECTED [facility] Comment on above: Performed By: #### R SPLUS #### [facility] [address] [place] [address] Dr. Jos Angulo Pertussis Not detected Normal NOT DETECTED [facility] Comment on above: Performed By: #### R SPLUS #### [facility] [address] [place] [address] Dr. Jos Gonzales Chlamydia Pneumoniae Not detected Normal NOT DETECTED [facility] Comment on above: Performed By: #### R SPLUS #### [facility] [address] [place] [address] Dr. Jos Gonzales Coronavirus 229E Not detected Normal NOT DETECTED [facility] Comment on above: Performed By: #### R SPLUS #### [facility] [address] [place] [address] Dr. Jos Gonzales Coronavirus HKU1 Not detected Normal NOT DETECTED [facility] Comment on above: Performed By: #### R SPLUS #### [facility] [address] [place] [address] Dr. Jos Gonzales Coronavirus NL63 Not detected Normal NOT DETECTED [facility] Comment on above: Performed By: #### R SPLUS #### [facility] [address] [place] [address] Dr. Jos Gonzales Coronavirus OC43 Not detected Normal NOT DETECTED [facility] Comment on above: Performed By: #### R SPLUS #### [facility] [address] [place] [address] Dr. Jos Gonzales Influenza A H1 Not detected Normal NOT DETECTED [facility] Comment on above: Performed By: #### R SPLUS #### [facility] [address] [address] [address] Jos Gonzales Influenza A H1 2009 Not detected Normal NOT DETECTED [facility] Comment on above: Performed By: #### R SPLUS #### [facility] [address] [place] [address] Dr. Jos Gonzales Influenza A H3 Not detected Normal NOT DETECTED [facility] Comment on above: Performed By: #### R SPLUS #### [facility] [address] [place] [address] Dr. Jos Gonzales Influenza B Not detected Normal NOT DETECTED [facility] Comment on above: Performed By: #### R SPLUS #### [facility] [address] [place] [address] Dr. Jos Gonzales Metapneumovirus Not detected Normal NOT DETECTED [facility] Comment on above: Performed By: #### R SPLUS #### [facility] [address] [place] [address] Dr. Jos Gonzales Mycoplas. Pneumoniae Not detected Normal NOT DETECTED [facility] Comment on above: Performed By: #### R SPLUS #### [facility] [address] [place] [address] Dr. Jos Gonzales Parainfluenza 1 Not detected Normal NOT DETECTED [facility] Comment on above: Performed By: #### R SPLUS #### [facility] [address] [address] [address] Jos Gonzales Parainfluenza 2 Not detected Normal NOT DETECTED [facility] Comment on above: Performed By: #### R SPLUS #### [facility] [address] [place] [address] Dr. Jos Gonzales Parainfluenza 3 Not detected Normal NOT DETECTED [facility] Comment on above: Performed By: #### R SPLUS #### [facility] [address] [place] [address] Dr. Jos Gonzales Parainfluenza 4 Not detected Normal NOT DETECTED [facility] [facility] Comment on above: Performed By: #### R SPLUS #### [facility] [address] [place] [address] Dr. Jos Gonzales Rhino/Enterovirus Not detected Normal NOT DETECTED [facility] Comment on above: Performed By: #### R SPLUS #### [facility] [address] [place] [address] Dr. Jos Gonzales RP2 Header 1 RESPIRATORY PANEL: VIRUSES Normal [facility] Comment on above: Performed By: #### R SPLUS #### [facility] [address] [place] [address] Dr. Jos Gonzales RP2 Header 2 RESPIRATORY PANEL: BACTERIA Normal The [facility] Comment on above: Performed By: #### R SPLUS #### [facility] [address] [place] [address] Dr. Jos Gonzales RSV Not detected Normal NOT DETECTED The [facility] Comment on above: Performed By: #### R SPLUS #### [facility] [address] [place] [address] Dr. Jos Gonzales SARS-CoV-2 (COVID-19) RNA LORE+probe Ql (Unsp spec) Not detected Normal NOT DETECTED [facility] Comment on above: Performed By: #### R SPLUS #### [facility] [address] [place] [address] Dr. Jos Gonzales CHEMISTRYOrdered By: SYSTEM SYSTEM on 02-04-2023 Albumin [Mass/Vol] 4.6 g/dL Normal 3.3 - 5.0 gm/dL [facility] Remisol Albumin/Globulin [Mass ratio] 1.5 {ratio} Normal 1.1 - 2.2 [facility] Remisol ALP [Catalytic activity/Vol] 61 [iU]/d Normal 21 - 98 Int._Unit/L [facility] Remisol ALT No additional P-5'-P [Catalytic activity/Vol] 20 [iU]/d Normal 6 - 46 Int._Unit/L [facility] Remisol Anion gap [Moles/Vol] 11 mmol/L Normal 6 - 16 mEq/L [facility] Remisol AST [Catalytic activity/Vol] 19 [iU]/d Normal 5 - 43 Int._Unit/L [facility] Remisol Bilirubin [Mass/Vol] 1.0 mg/dL Normal 0.0 - 1 .1 mg/dL [facility] Remisol Calcium [Mass/Vol] 9.6 mg/dL Normal 8.9 - 11. 1 mg/dL [facility] Remisol Chloride [Moles/Vol] 102 mmol/L Normal 101 - 1 11 mmol/L [facility] Remisol Cholesterol [Mass/Vol] 133 mg/dL Normal 120 - 200 mg/dL [facility] Remisol Cholesterol in HDL [Mass/Vol] 44 mg/dL Invalid Interpretation Code [facility] Remisol Cholesterol in LDL [Mass/Vol] 73 mg/dL Normal <=129mg/dL [facility] Remisol Cholesterol in VLDL [Mass/Vol] 25 mg/dL Normal 7 - 40 mg/dL [facility] Remisol CO2 [Moles/Vol] 26 mmol/L Normal 21 - 31 mmol/L [facility] Remisol Creatinine [Mass/Vol] 0.8 mg/dL Normal 0.5 - 1.3 mg/dL [facility] Remisol GFR/1.73 sq M.predicted among blacks MDRD (S/P/Bld) [Vol rate/Area] mL/min/1.73 m2 Normal >=59mL/min/1 .73 m2 [facility] Chem S GFR/1.73 sq M.predicted among non-blacks MDRD (S/P/Bld) [Vol rate/Area] mL/min/1.73 m2 Normal >=59mL/min/1 .73 m2 [facility] Chem S Globulin (S) [Mass/Vol] 3.0 g/dL Normal 1.4 - 4.0 gm/dL [facility] Remisol Glucose [Mass/Vol] 106 mg/dL Normal 55 - 199 mg/dL [facility] Remisol Potassium [Moles/Vol] 4.2 mmol/L Normal 3.5 - 5.3 mmol/L [facility] Remisol Protein [Mass/Vol] 7.6 g/dL Normal 6.0 - 7.8 gm/dL [facility] Remisol Sodium [Moles/Vol] 135 mmol/L Normal 135 - 145 mmol/L [facility] Remisol Triglyceride [Mass/Vol] 127 mg/dL Normal <=149mg/dL [facility] Remisol Urea nitrogen [Mass/Vol] 20 mg/dL Normal 5 - 21 mg/dL [facility] Remisol Urea nitrogen/Creatinine [Mass ratio] 25 mg/mg High 10 - 20 [facility] Remisol CHEMISTRYOrdered By: Marily Adams on 02-04-2023 HbA1c (Bld) [Mass fraction] 7.0 % High <=5.9% [facility] ChemAutoSS HEMATOLOGYOrdered By: SYSTEM SYSTEM on 02-04-2023 Basophils/100 WBC (Bld) 0.4 % Normal 0.0 - 2.0 % [facility] HemeAutoSS Basophils/Leukocytes Auto (Bld) [Pure # fraction] 0.0 E9/L Normal 0.0 - 0.2 E9/L [facility] HemeAutoSS Eosinophils/100 WBC (Bld) 1.3 % Normal 0.0 - 8.0 % [facility] HemeAutoSS Eosinophils/Leukocyte s Auto (Bld) [Pure # fraction] 0.1 E9/L Normal 0.0 - 0.5 E9/L [facility] HemeAutoSS Lymphocytes/100 WBC (Bld) 21.9 % Normal 14.0 - 50.0 % [facility] HemeAutoSS Lymphocytes/Leukocyte s Auto (Bld) [Pure # fraction] 1.4 E9/L Normal 1.0 - 4.0 E9/L [facility] HemeAutoSS Monocytes/100 WBC (Bld) 8.7 % Normal 4.0 - 14.0 % [facility] HemeAutoSS Monocytes/Leukocytes Auto (Bld) [Pure # fraction] 0.6 E9/L Normal 0.2 - 1.0 E9/L [facility] HemeAutoSS Neutrophils/100 WBC (Bld) 67.7 % Normal 36.0 - 75.0 % [facility] HemeAutoSS Neutrophils/Leukocyte s Auto (Bld) [Pure # fraction] 4.4 E9/L Normal 2.0 - 7.5 E9/L [facility] HemeAutoSS HEMATOLOGYOrdered By: Donna Pascual on 02-04-2023 Erythrocyte distribution width (RBC) [Ratio] 12.9 % Normal 10.9 - 14.2 % [facility] HemeAutoSS Hematocrit (Bld) [Volume fraction] 46.7 % Normal 37.7 - 49.0 % [facility] HemeAutoSS Hemoglobin (Bld) [Mass/Vol] 15.4 g/dL Normal 13.5 - 17.5 gm/dL [facility] HemeAutoSS MCH (RBC) [Entitic mass] 30.3 pg Normal 27.0 - 34.0 pg [facility] HemeAutoSS MCHC (RBC) [Mass/Vol] 32.9 g/dL Normal 31.4 - 36.0 gm/dL [facility] HemeAutoSS MCV (RBC) [Entitic vol] 91.9 fL Normal 80.0 - 100.0 fL [facility] HemeAutoSS Platelet mean volume (Bld) [Entitic vol] 8.0 fL Normal 6.4 - 10.8 fL [facility] HemeAutoSS Platelets (Bld) [#/Vol] 242.0 E9/L Normal 150.0 - 500.0 E9/L [facility] HemeAutoSS RBC (Bld) [#/Vol] 5.1 E12/L Normal 4.3 - 5.9 E12/L [facility] HemeAutoSS WBC corrected for nucl RBC Auto (Bld) [#/Vol] 6.5 E9/L Normal 4.0 - 11.0 E9/L [facility] HemeAutoSS Office Visit (Cardiology)on 01-16-2023 Follow-up visit Diagnoses/Problems Assessed ASHD (arteriosclerotic heart disease) (414.00) (I25.10) H/O plfgr-wpgrf-lgfpeng bypass (V15.1) (Z95.828) S/P CABG (coronary artery bypass graft) (V45.81) (Z95.1) PAD (peripheral artery disease) (443.9) (I73.9) Hypertension (401.9) (I10) Hyperlipidemia (272.4) (E78.5) Diabetes mellitus (250.00) (E11.9) Former smoker (V15.82) (Z87.891) Overweight with body mass index (BMI) of 27 to 27.9 in adult (278.02,V85.23) (E66.3,Z68.27) Orders ASHD (arteriosclerotic heart disease) Renew: Aspirin EC 81 MG Oral Tablet Delayed Release; TAKE 1 TABLET DAILY Hyperlipidemia Renew: Pravastatin Sodium 80 MG Oral Tablet; TAKE 1 TABLET DAILY Lipid Panel; Status:Active - Retrospective Authorization; Requested for:16Jan2023; Overweight with body mass index (BMI) of 27 to 27.9 in adult Healthy Weight Tips; Status:Complete - Retrospective Authorization; Done: 16Jan2023 Some eating tips that can help you lose weight.; Status:Complete - Retrospective Authorization; Done: 16Jan2023 SocHx: Former smoker Tobacco Use Screening; Status:Complete; Done: 16Jan2023 Patient Instructions Please bring all medicines, vitamins, and herbal supplements with you when you come to the office. Prescriptions will not be filled unless you are compliant with your follow up appointments or have a follow up appointment scheduled as per instruction of your physician. Refills should be requested at the time of your visit. Follow up in 1 year. Chief Complaint ROBYN RUTH is being seen for an annual follow-up of. 72-year-old gentleman returns for follow-up he is doing well he denies any cardiovascular complaints. He is walking daily and remains asymptomatic. In April 2022 he underwent routine treadmill stress testing, on the Supa protocol, at 10.1 METS at 88% of his maximum heart rate for 10 minutes without any symptoms or ECG changes. He has a history of remote CABG in 2009 followed by aortic bifemoral bypass in 2009 in [facility] with clinically excellent result that continues. His comorbidities continue to include diabetes and hyperlipidemia, we have no recent blood work Recommendations, obtain lipid panel, follow-up in 1 year continue excellent lifestyle choices, exercise and activity level. Current Meds Medication NameInstruction amLODIPine Besylate 5 MG Oral TabletTAKE 1 TABLET DAILY. Aspirin EC 81 MG Oral Tablet Delayed ReleaseTAKE 1 TABLET DAILY. Dutasteride 0.5 MG Oral CapsuleTAKE 1 CAPSULE Daily Latanoprost 0.005 % Ophthalmic SolutionINSTILL 1 DROP INTO AFFECTED EYE(S) ONCE DAILY DIRECTED. metFORMIN HCl - 500 MG Oral TabletTAKE 1 TABLET EVERY 12 HOURS WITH FOOD. Metoprolol Tartrate 25 MG Oral TabletTAKE 1 TABLET TWICE DAILY. Pravastatin Sodium 80 MG Oral TabletTAKE 1 TABLET DAILY. Tamsulosin HCl - 0.4 MG Oral CapsuleTAKE 1 CAPSULE Daily Timolol Maleate 0.5 % Ophthalmic SolutionINSTILL 1 DROP IN BOTH EYES EVERY 12 HOURS DAILY. traZODone HCl - 100 MG Oral TabletTAKE 1 TABLET Daily prn Valsartan 40 MG Oral TabletTAKE 1 TABLET DAILY. Allergies Medication Zestril TABS Recorded By: Nohemi Huerta; 11/26/2021 11:51:51 AM cough Social History Problems Caffeine use (V49.89) (Z78.9) Former smoker (V15.82) (Z87.891) No illicit drug use Social alcohol use (V49.89) (Z78.9) Review of Systems Constitutional: not feeling tired. Cardiovascular: no intermittent leg claudication and as noted in HPI. Respiratory: no cough and no shortness of breath. Gastrointestinal: no change in bowel habits and no blood in stools. Integumentary: no skin rashes. Neurological: no seizures and no frequent falls. All other systems have been reviewed and are negative for complaint. Vitals Vital Signs Recorded: 16Jan2023 08:58AM Heart Rate68, R Radial Jbcxkqjh260, LUE, Sitting Sfsxhvtqb41, LUE, Sitting Height5 ft 10 in Rtiqsk790 lb BMI Zizqroocbu37.41 kg/m2 BSA Calculated2.05 Tobacco Useb) No PHQ-2 #1. Over the last 2 weeks have you felt down, depressed or hopeless? (If yes, answer PHQ-9 below)No PHQ-2 #2. Over the last 2 weeks have you felt little interest or pleasure in doing things? (If yes, answer PHQ-9 below)No Falls Screening (Age 18+)a) No falls within the last year Physical Exam Constitutional: alert and in no acute distress. Neck: neck is supple, symmetric, trachea midline, no masses and no thyromegaly . Pulmonary: no increased work of breathing or signs of respiratory distress and lungs clear to auscultation. Cardiovascular: carotid pulses 2+ bilaterally with no bruit , JVP was normal, no thrills , regular rhythm, normal S1 and S2, no murmurs , pedal pulses 2+ bilaterally and no edema . Abdomen: abdomen non-tender, no masses and no hepatomegaly . Skin: skin warm and dry, normal skin turgor . Psychiatric judgment and insight is normal and oriented to person, place and time . Signatures Electronically signed by : Lonny Saleh DO; Jan 16 2023 10:24AM EST (Author) Normal [facility] Tobacco Screening.on 023 Adult depression screening assessment No [facility] y 250 DO Work Phone: Fall risk assessment a) No falls within the last year [facility] y 250 DO Work Phone: Tobacco use status CPHS b) No [facility] 250 DO Work Phone: Cardiac Stress Teston 2021 Cardiac Stress Test [facility] [address] [place] [address], [place] [address] Exercise Stress Test Patient Name: ROBYN King Ordering Physician: [id number] Lonny Saleh DO FLORY Study Date: 04/09/2022 Reading Physician: [id number] Shannan Carbone MD MRN/PID: [id number] Supervising [id number] Shannan Carbone Physician: Accession/Order#: [id number] Referring Physician: [id number] LONNY SALEH Date of : 1950 PCP: Milagro Sosa Gender: M Fellow: Height: 177.80 cm Nurse: Ruslan Carbajal RN Weight: 86.18 kg Fingerprint Classifier: ALEXA BSA: 2.04 m2 Technologist: BMI: 27.26 kg/m2 Additional Staff: Age: 72 years cc report to: Patient Location: cc report to: [id number] Lonny Pillo DO Study Type: Cardiac Stress Test Diagnosis/ICD: I25.10-Atheroscleroti c heart disease of [place] coronary artery without angina pectoris; I73.9-Peripheral vascular disease, unspecified Indication: DIABETES Procedure/CPT: Stress Test Interpretation-[id number]; Stress Test Supervision-[id number] Falls Risk: Low: Patient has low risk for sustaining a fall; environmental safety interventions in place. Study Details: Correct procedure and correct patient verified verbally. Patient Performance: The patient exercised to stage III on a Supa protocol for 10 minutes and 2 seconds, achieving 10.10 METS. The peak heart rate achieved was 130 bpm, which was 88 % of the age predicted target heart rate of 148 bpm. The resting blood pressure was 144/76 mmHg with a heart rate of 88 bpm. The standing blood pressure was 142/78 mmHg with a heart rate of 65 bpm. The patient's functional capacity was above average. The patient developed dyspnea during the stress exam. The symptoms resolved with rest. The blood pressure response was normal. The test was terminated due to: dyspnea. Sinus tachycardia. Baseline ECG: Normal sinus rhythm with nondiagnostic ST-T changes. Stress Stage Data: + +-- -+------+-------+ HR Sys BP Torrez BP + +-- -+------+-------+ Baseline Resting 88 144 76 + +-- -+------+-------+ Baseline Standing 65 142 78 + +-- -+------+-------+ Stage I 90 142 76 + +-- -+------+-------+ Stage II 99 158 76 + +-- -+------+-------+ Stage III 127 172 82 + +-- -+------+-------+ Stage IV 130 182 78 + +-- -+------+-------+ Recovery ECG: The heart rate recovery was normal. + +---+--- ---+-------+ HR Sys BP Torrez BP + +---+--- ---+-------+ Recovery I 112 182 78 + +---+--- ---+-------+ Recovery II 107 178 76 + +---+--- ---+-------+ Recovery III 91 158 76 + +---+--- ---+-------+ Recovery IV 81 146 78 + +---+--- ---+-------+ Summary: 1. Normal graded exercise stress test with nondiagnostic ST-T changes for ischemia. 2. No provoked chest pain or arrhythmia. 3. Appropriate hemodynamic response to exercise. 4. Excellent exercise tolerance. 5. Normal heart rate recovery. 6. There is clinically negative test. 7. The adequate level of stress was achieved. [id number] Shannan Carbone MD Electronically signed on 04/09/2022 at 5:25:24 PM Final Normal [facility] Cardiac Stress Test [facility] Dat[facility]ette davis 250 DO Work Phone: XR KUB 1 VIEWon 03-08-2022 XR KUB 1 VIEW EXAM: XR KUB 1 VIEW HISTORY: Raised prostate specific antigen Clinical Indication: Raised prostate specific antigen Comparison: None FINDINGS: The supine and upright views of the abdomen shows a non-obstructive bowel gas pattern. There is no abnormal dilatation of bowel loops. No significant air fluid levels. There is no pneumoperitoneum. There are no radiopaque densities noted. There are no clinically significant osseous abnormalities noted. IMPRESSION: Unremarkable abdominal series SL: [id number] Electronically authenticated by: LESLY BAEZ Date: 2022-03-08 15:31 Normal [facility] Tobacco Screening.on 022 Fall risk assessment a) No falls within the last year [facility] y 250 DO Work Phone: Tobacco use status CPHS b) No [facility] y 250 DO Work Phone: OPERATIVE REon 12-20-2019 [employer] Authentication Interface Message Text [place] OPERATIVE REPORT DATE OF OPERATION: 12/20/2019 SURGEON: Jordan Dang MD PRESS MACHINE OPERATOR: Lesly Napier MD(R) PREOPERATIVE DIAGNOSIS: Left indirect hernia. POSTOPERATIVE DIAGNOSIS: Left direct inguinal hernia. OPERATION: Laparoscopic transabdominal preperitoneal repair with mesh . ESTIMATED BLOOD LOSS: Negligible. ANESTHESIA: General with endotracheal intubation. SPECIMENS: No specimen was removed and a large size left-sided 3D mesh was placed. PROCEDURE: The patient was taken to the operating room, placed on the operative table in supine position. General anesthesia was introduced with endotracheal intubation. The abdomen was prepped and draped in the usual sterile fashion. A 5-mm incision was made in the right anterior axillary line under the ribcage, then a 5-mm Optiview trocar was advanced through layers of the abdominal wall until the peritoneum was reached. Pneumoperitoneum established at 15 mmHg pressure. The abdomen was inspected. There were extensive adhesions between the omentum and the anterior abdominal wall, mostly superior to the umbilicus. There were no adhesions in the lower abdomen. A 5-mm incision was made in the superior edge of the umbilicus and a 5-mm trocar was placed in front of the adhesions. Then, another 5 in the left and 12 in the right medial clavicular line at the level of the umbilicus under the vision of camera, respectively. The pelvis was inspected. There was a wcjwhxrg-dv-aipvg size left direct hernia identified. The peritoneum was incised from the medial clavicular line laterally and in superior to the defect. Then, the preperitoneal flap was developed by blunt dissection. The epigastric vessels were mobilized and held against the abdominal wall and the dissection continued in the preperitoneal space. Hemostasis was obtained using Bovie cautery. The direct hernia sac was inverted. There was also preperitoneal lipoma separately in the hernia defect, which was reduced. The transversalis pseudo sac was inverted, then ligated with a PDS Endoloop. The Xavi's ligament was identified and cleared of the surrounding fat. The processus vaginalis was closed. The processus vaginalis was completely dissected off the spermatic duct and vessels. A large size left-sided 3D mesh was then placed in the preperitoneal space. The mesh was sitting in the dissected space completely. There was a good overlap around the direct defect. The peritoneum was then closed with a running 2-0 Stratafix suture. The trocars were removed under vision of camera, there was no backbleeding seen. Pneumoperitoneum was decompressed. Skin incisions were closed with intradermally placed 4-0 Monocryl after they were injected with 0.5% Marcaine without epinephrine and finally Steri-Strips were applied. Needle and sponge count was correct. The patient tolerated the procedure well. The signature of the attending physician serves as a countersignature for the author of the document unless the attending is the author. Jordan Dang MD TD: 12/20/2019 04:03 PM Confirmation #: [id number] Dictation ID: [id number] CC: Jordan Dang MD [facility] POC GLUCOSEon 12-20-2019 Glucose [Mass/Vol] 142 mg/dL High [address] [place] [address] Comment on above: Result Comment: Test performed by caregiver. Performed By: #### P [id number] #### [place] [address] Glucose [Mass/Vol] 132 mg/dL High [address] [place] [address] Comment on above: Result Comment: Test performed by caregiver. Performed By: #### P [id number] #### [place] [address] [address] HEMATURIA PROTOCOLon 09-[address] HEMATURIA CHELSY COL 09/20/2019 10:54 AM INDICATION: Hematuria COMPARISON: CT 01/03/2017 PROTOCOL: Axial CT images obtained from the lower chest through the pelvis with and without contrast. Dose reduction: mA and/or kV are were adjusted by automated exposure control software based upon patient's height and weight. FINDINGS: Lower chest: Clear lungs. Organs: Bilateral adrenal adenomas measuring up to 15 mm on the right. Liver, gallbladder, spleen and pancreas are normal. A splenule is present. No hydronephrosis. Punctate nonobstructive nephrolithiasis on the right. GI: No evidence of bowel obstruction. Small hiatal hernia. Diverticulosis without evidence of diverticulitis. Pelvis: Bladder is normal without filling defect. Prostatomegaly, measuring up to 6.1 cm. Retroperitoneum/perit oneum: Aortobiiliac bypass which appears patent. Near aorta is occluded. Reconstitution of internal and external iliac vessels on the left. Small bowel noted within the left inguinal canal. No evidence of obstruction or strangulation. Bones/soft tissues: No suspicious osseous lesions. IMPRESSION: Punctate nonobstructing nephrolithiasis on the right. Prostatomegaly, measuring up to 6.1 cm. Bowel herniated into the left inguinal canal. No evidence of obstruction or strangulation. DICTATED BY: MARY MARRERO M.D. Workstation ID:[id number] Pt st found blood in urine pt is having sensation of having to urinate. Hx hernia surg appendix surg and aorta bi femoral bypass surg. No hx cancer. Creat = 0.9 GFR = 86 150 cc's omni 350 Normal [facility] POC CREATININEon 09-20-2019 Creatinine [Mass/Vol] 0.9 mg/dL Normal [facility] Comment on above: Performed By: #### P OC37 #### [place] [address] GFR/1.73 sq M predicted among non-blacks MDRD (S/P/Bld) [Vol rate/Area] Normal [facility] Comment on above: Performed By: #### P OC37 #### [place] [address] COMPLETE BLOOD COUNT WITH DI FFERENTIALon 11-18-2017 % SEGMENTED NEUTROPHILS 73.4 % Normal 45-76 [facility] Comment on above: Performed By: #### L [id number] ####[facility] [address] [place], [place] [phone] ABSOLUTE BASOPHIL 0.00 K/UL Normal 0.0-0.2 [facility] Comment on above: Performed By: #### L [id number] ####[facility] [address] [place], [place] [phone] ABSOLUTE SEGMENTED NEUTROPHIL 5.80 K/UL Normal 2.3-7.6 [facility] Comment on above: Performed By: #### L [id number] ####[facility] [place], [place] [phone] Basophils/100 WBC Auto (Bld) 0.5 % Normal 0-2 [facility] Comment on above: Performed By: #### L [id number] ####[facility] [address] [place] [address] [phone] DIFF/MORPHOLOGY AUTO Normal [facility] Comment on above: Performed By: #### L [id number] ####[address] [phone] Eosinophils 0.20 10*3/uL Normal 0.0-0.7 [facility] Comment on above: Performed By: #### L AB119 ####[address] [id number] Eosinophils/100 leukocytes 2.0 % Normal 0-7 [facility] Comment on above: Performed By: #### L AB119 ####[address] [id number] Erythrocyte distribution width Auto Ratio (RBC) 12.5 % Normal 11.5-14.5 [facility] Comment on above: Performed By: #### L AB119 ####[address] [id number] Erythrocytes (RBC) 5.08 M/UL Normal 4.5-6.0 [facility] Comment on above: Performed By: #### L [id number] ####[address] [phone] Hematocrit (HCT) 47.3 % Normal 40-50 [facility] Comment on above: Performed By: #### L [id number] ####[address] [phone] Hemoglobin mass conc (Bld) 16.1 g/dL Normal 14.0-18.0 [facility] Comment on above: Performed By: #### L [id number] ####[facility] [address] [place], [place] [phone] Lymphocytes 1.30 10*3/uL Normal 0.8-4.5 [facility] Comment on above: Performed By: #### L [id number] ####[facility] [address] [place], [place] [phone] Lymphocytes/100 leukocytes 17.3 % Normal 15-45 [facility] Comment on above: Performed By: #### L [id number] ####[facility] [place] [address] [phone] MCH 31.8 pg Normal 23-34 [facility] Comment on above: Performed By: #### L [id number] ####[facility] [address] [place], [place] [phone] MCHC mass conc (RBC) 34.1 g/dL Normal 32-36 [facility] Comment on above: Performed By: #### L [id number] ####[facility] [place] [address] [phone] MCV 93.3 fL Normal 82-97 [facility] Comment on above: Performed By: #### L [id number] ####[facility] [address] [place], [place] [phone] Monocytes 0.50 10*3/uL Normal 0.2-1.0 [facility] Comment on above: Performed By: #### L [id number] ####[facility] [address] [place], [place] [phone] Monocytes/100 leukocytes 6.8 % Normal 4-13 [facility] Comment on above: Performed By: #### L AB119 ####[facility] [place], [place] [phone] Platelet mean volume (PMV) 7.7 fL Normal [facility] Comment on above: Performed By: #### L AB119 ####[facility] [address] [place], [place] [phone] Platelets 242 10*3/uL Normal 140-440 [facility] Comment on above: Performed By: #### L [id number] ####[facility] [address] [place], [place] [phone] WBC (Leukocytes) 7.8 10*3/uL Normal 5.0-10.0 [facility] Comment on above: Performed By: #### L [id number] ####[facility] [address] [place], [place] [phone] COMPREHENSIVE METABOLIC PANE [facility] 11-18-2017 Alanine aminotransferase (ALT) 43 UNITS/L Normal 21-72 [facility] Comment on above: Performed By: #### L [id number] ####[facility] Hzjaayyzzu[address] [place], [place] [phone] Albumin 4.5 g/dL Normal 3.6-5.1 [facility] Comment on above: Performed By: #### L [id number] ####[facility] [address] [place], [place] [phone] Alkaline phosphatase (ALP) 78 UNITS/L Normal 42-121 [facility] Comment on above: Performed By: #### L [id number] ####[facility] [address] [place], [place] [phone] Aspartate aminotransferase (AST) 26 UNITS/L Normal 14-50 [facility] Comment on above: Performed By: #### L [id number] ####[facility] [address] [place], [place] [phone] Bilirubin (total) 0.9 mg/dL Normal 0.1-1.0 [facility] Comment on above: Performed By: #### L [id number] ####[facility] Lhvdisp[address]g28[address] [place], [place] [phone] Calcium 9.6 mg/dL Normal 8.2-10.4 [facility] Comment on above: Performed By: #### L [id number] ####[facility] [address] [place], [place] [phone] Chloride 106 mmol/L Normal 98-107 [facility] Comment on above: Performed By: #### L AB120 ####[facility] [address] [place], [place] [phone] CO2 24 mmol/L Normal 22-33 [facility] Comment on above: Performed By: #### L AB120 ####[facility] Lqmgvwmnat18[address] [place], [place] [phone] Creatinine 0.80 mg/dL Normal 0.70-1.30 [facility] Comment on above: Performed By: #### L AB120 ####[facility] [address] [place], [place] [phone] eGFR (non-black) mL/min/{1.73_m2} Normal >60 [facility] Comment on above: Performed By: #### L AB120 ####[facility] [address] [place], [place] [phone] Glucose mass conc 125 mg/dL High 75-110 [facility] Comment on above: Performed By: #### L AB120 ####[facility] [address]jle[address] [place], [place] [phone] Potassium molar conc 4.5 mmol/L Normal 3.6-4.9 [facility] Comment on above: Performed By: #### L AB120 ####[facility] [address]sejl[address] [place], [place] [phone] Protein 7.5 g/dL Normal 6.0-8.0 [facility] Comment on above: Performed By: #### L AB120 ####[facility] [address]sil[address] [place], [place] [phone] Sodium 145 mmol/L Normal 137-145 [facility] Comment on above: Performed By: #### L AB120 ####[facility] [address] [place], [place] [phone] Urea nitrogen 17 mg/dL Normal 5-22 [facility] Comment on above: Performed By: #### L AB120 ####[facility] [address] [place], [place] [phone] LIPID PANEL (CORONARY RISK)o n 11-18-2017 Cholesterol 129 mg/dL Normal [facility] Comment on above: Result Comment: LUCIANO RABLE Performed By: #### L [id number] ####[facility] [address] [place] [address] [phone] HDL Cholesterol 47 mg/dL Normal [facility] Comment on above: Result Comment: LUCIANO RABLE Performed By: #### L [id number] ####[facility] [address] [place], [place] [phone] LDL Cholesterol 57 mg/dL Normal [facility] Comment on above: Result Comment: LUCIANO RABLE Performed By: #### L [id number] ####[facility] [address] [place], [place] [phone] Triglyceride 124 mg/dL Normal [facility] Comment on above: Result Comment: NORM AL Performed By: #### L [id number] ####[facility] [address] [place], [place] [phone] VLDL CHOLESTEROL 25 MG/DL Normal [facility] Comment on above: Result Comment: NORM AL Performed By: #### L [id number] ####[facility] [address] [place], [place] [phone] MICROALBUMIN, URINE RANDOMon 11-18-2017 COMMENT PERFORMED AT [facility]; MED.DIRECTOR PAPITO LING MD. Normal [facility] Comment on above: Performed By: #### L AB300 ####[facility] [address] [place], [place] [phone] CREATININE, URINE RANDOM 214.0 MG/DL Normal [facility] Comment on above: Result Comment: Refe rence range: > 20 Performed By: #### L AB300 ####[facility] [place], [place] [phone] MICROALB/CREAT RATIO Unit: MCG/MG CREAT Normal [facility] Comment on above: Performed By: #### L AB300 ####[facility] [place], [place] [phone] Urine, microalbumin Unit: MCG/DL [facility] Comment on above: Performed By: #### L AB300 ####[facility] [place], [place] [phone] PROSTATE SPECIFIC ANTIGEN, S CHANCEon 11-18-2017 PROSTATE SPECIFIC ANTIGEN 4.3 NG/ML High 0.0-4.0 [facility] Comment on above: Result Comment: Effe ctive 02/16/07, the Ortho PSA assay employed by [facility] laboratory wasrestandardized to improve correlation with other commercially-available PSAmethods.The new assay may yield numerical values that are as much as 20% less than theprevious formulation.It is recommended that a new baseline be established for individual patients. Performed By: #### L AB696 ####[facility] [place], [place] [phone] Vital Signs Date Time Vital Sign Value Performing Clinician Facility 07-16-2024 08:24-0400 Blood Pressure Location Alejandro HAYES [facility] 07-16-2024 08:24-0400 Diastolic blood pressure 74 mm[Hg] [facility] 07-16-2024 08:24-0400 Heart rate 74 /min Alejandro HAYES [facility] 07-16-2024 08:24-0400 Systolic blood pressure 100 mm[Hg] Alejandro HAYES [facility] 01-29-2024 09:03-0400 Body height 177.8 cm Lonny Saleh DO Work Phone: [facility] 01-29-2024 09:03-0400 Body mass index (BMI) [Ratio] 26.83 kg/m2 Lonny Saleh DO Work Phone: [facility] 01-29-2024 09:03-0400 Body weight 84.82 kg Lonny Saleh DO Work Phone: [facility] 01-29-2024 09:03-0400 Diastolic blood pressure 70 mm[Hg] Lonny Saleh DO Work Phone: [facility] 01-29-2024 09:03-0400 Heart rate 72 /min Lonny Saleh DO Work Phone: [facility] 01-29-2024 09:03-0400 Systolic blood pressure 120 mm[Hg] Lonny Saleh DO Work Phone: [facility] 07-11-2023 08:19-0400 Blood Pressure Location Alejandro HAYES [facility] 07-11-2023 08:19-0400 Diastolic blood pressure 74 mm[Hg] Alejandro HAYES [facility] 07-11-2023 08:19-0400 Heart rate 68 /min Alejandro HAYES [facility] 07-11-2023 08:19-0400 Respiratory rate 16 /min Alejandro HAYES [facility] 07-11-2023 08:19-0400 Systolic blood pressure 120 mm[Hg] Alejandro HAYES [facility] 01-16-2023 08:58-0400 Body height 177.8 cm Milagro Sosa Work Phone: [facility] 250 DO Work Phone: 01-16-2023 08:58-0400 Body mass index (BMI) [Ratio] 27.41 kg/m2 Milagro Lara Sosa Work Phone: [facility] 250 DO Work Phone: 01-16-2023 08:58-0400 Body surface area Derived from formula 2.05 m2 Milagro Sosa Work Phone: [facility] 250 DO Work Phone: 01-16-2023 08:58-0400 Body weight 86.64 kg Milagro Mouraight Work Phone: [facility] 250 DO Work Phone: 01-16-2023 08:58-0400 Diastolic blood pressure 80 mm[Hg] Milagro Sosa Work Phone: [facility] 250 DO Work Phone: 01-16-2023 08:58-0400 Heart rate 68 /min Milagro Mouraight Work Phone: [facility] 250 DO Work Phone: 01-16-2023 08:58-0400 Systolic blood pressure 112 mm[Hg] Milagro Sosa Work Phone: [facility] 250 DO Work Phone: 01-14-2022 13:43-0400 Body height 177.8 cm Milagro Sosa Work Phone: [facility] 250 DO Work Phone: 01-14-2022 13:43-0400 Body mass index (BMI) [Ratio] 27.26 kg/m2 Milagro Mouraight Work Phone: [facility] 250 DO Work Phone: 01-14-2022 13:43-0400 Body surface area Derived from formula 2.04 m2 Milagro Mouraight Work Phone: [facility] 250 DO Work Phone: 01-14-2022 13:43-0400 Body weight 86.18 kg Milagro Sosa Work Phone: [facility] 250 DO Work Phone: 01-14-2022 13:43-0400 Diastolic blood pressure 86 mm[Hg] Milagro Sosa Work Phone: [facility] 250 DO Work Phone: 01-14-2022 13:43-0400 Heart rate 64 /min Milagro Sosa Work Phone: [facility] 250 DO Work Phone: 01-14-2022 13:43-0400 Systolic blood pressure 121 mm[Hg] Milagro Sosa Work Phone: [facility] 250 DO Work Phone: Encounters Encounter Date Encounter Type Care Provider Facility Start: 12-06-2024 End: 12-06-2024 Lab Drop off Javed Hurley [facility] Start: 12-06-2024 End: 12-06-2024 ambulatory Javed Hurley Facility[facility] Start: 07-16-2024 End: 07-16-2024 ambulatory Alejandro HAYES Facility:[facility] Start: 07-16-2024 End: 07-16-2024 Patient encounter procedure Alejandro HAYES [facility] Start: 01-29-2024 End: 01-29-2024 ambulatory [facility] Start: 01-29-2024 End: 01-29-2024 Office outpatient visit 15 minutes Lonny Chingdon DO Work Phone: [facility] Comment on above: ASHD (arteriosclerot ic heart disease); Arteriosclerosis of arterial coronary artery bypass graft; H/O ldarz-kycqs-oaaxkdg bypass; Hyperlipidemia, unspecified hyperlipidemia type; Former cigarette smoker; Hypertension, unspecified type Start: 07-11-2023 End: 07-11-2023 Patient encounter procedure Alejandro HAYES [facility] Start: 02-25-2023 End: 02-26-2023 ambulatory JAVED HURLEY Facility:[facility] Start: 02-04-2023 End: 02-04-2023 Lab Drop off Javed Hurley [facility] Start: 01-16-2023 Office outpatient vi sit 15 minutes Milagro Sosa Work Phone: [facility] 250 DO Work Phone: Start: 01-16-2023 ambulatory [facility] Facilit y: Start: 04-10-2022 Chart Update Milagro Sosa Work Phone: [facility] 250 DO Work Phone: Start: 03-12-2022 End: 03-12-2022 Patient encounter procedure America Poon Jr. [facility] Start: 03-08-2022 End: 03-09-[address] MILAGRO SOSA . Facility:[facility] Start: 01-14-2022 Office outpatient vi sit 25 minutes Milagro Sosa Work Phone: [facility] 250 DO Work Phone: Start: 11-18-2017 End: 11-19-2017 Ambulatory KIP BENAVIDES [facility] Procedures Date Procedure Procedure Detail Performing Clinician Start: 01-29-2024 Lipid panel LONNY DEGROOT Start: 03-08-2022 PSA screening JAVED BOB Comment on above: Performed By: #### P SAD #### [facility] [address] [place] [address] Dr. Jos Gonzales Start: 09-22-2019 Cystoscope, device (physical object) America Poon Jr. Aortoiliofemoral vas cular bypass Milagro Sosa Work Phone: Appendectomy Milagro Sosa Work Phone: Biopsy of prostate Milagro kapadia Work Phone: Cardiac catheterization Milagro Sosa Work Phone: Coronary artery bypa ss graft Milagro Sosa Work Phone: Coronary artery bypa ss grafts x 4 America Poon Jr. Cystoscopy Milagro Sosa Work Phone: Femoral artery bypass America Poon Jr. Hernia repair Milagro Sosa Work Phone: History of coronary artery bypass grafting S/P CABG x 4( Confirmed ) America Poon Jr. History of coronary artery bypass grafting S/P CABG (coronary artery bypass graft) Milagro Sosa Work Phone: History of hernia repair Bakari Poon Jr. Kidney operation Milagro nogueira Work Phone: Tonsillectomy and adenoidectomy Milagro Sosa Work Phone: Tonsillectomy and adenoidectomy America Poon Jr. Total colonoscopy Milagro E Knig ht Work Phone: Transrectal biopsy o f prostate using ultrasound guidance America Poon Jr. Plan of Treatment Date Care Activity Detail Author Start: 07-22-2025 ambulatory Ambulatory Facility:[facility] Start: 06-06-2025 ambulatory Ambulatory Facility:[facility] Start: 02-10-2025 End: 02-10-2025 Patient encounter procedure 02/10/2025 9:00 AM EDT Office Visit [facility] [address] [place] [address] Lonny Saleh S, DO [address] [place] [address] [facility] Start: 01-29-2024 End: 01-28-2025 Lipid 1996 panel - Serum or Plasma Lipid Panel Lab Routine Hyperlipidemia, unspecified hyperlipidemia type Expected: 01/29/2024 (Approximate), Expires: 01/28/2025 [facility] Service Area Work Phone: Comment on above: Expected: 01/29/2024 (Approximate), Expires: 01/28/2025 Start: 01-29-2024 FUV, Provider: Lonny Saleh, Status: Pen, Time: 9:00 AM FUV, Provider: Lonny Saleh, Status: Pen, Time: 9:00 AM [facility] 250 DO Work Phone: Start: 07-04-2023 COVID-19 Vaccine ( season) COVID-19 Vaccine ( season) [facility] Start: 07-04-2023 Influenza vaccination Influenza Vacc ine (#1) [facility] Start: 01-16-2023 FUV, Provider: Lonny Saleh, Status: Pen, Time: 9:00 AM FUV, Provider: Lonny Saleh, Status: Pen, Time: 9:00 AM [facility] 250 DO Work Phone: Start: 04-09-2022 STRESS STEVEN, Provider : OLGA LIDIA HHVI NUCLEAR 01,[id number], Status: Pen, Time: 2:00 PM STRESS STEVEN, Provider: OLGA LIDIA HHVI NUCLEAR 01,[id number], Status: Pen, Time: 2:00 PM [facility] 250 DO Work Phone: Start: 12-29-2015 Zoster Vaccines (2 o f 3) Zoster Vaccines (2 of 3) [facility] Start: 2015 Abdominal aortic aneurysm screening Abdominal Aortic Aneurysm (AAA) Screening [facility] Start: 02-02-1972 DTaP/Tdap/Td Vaccine s (1 - Tdap) DTaP/Tdap/Td Vaccines (1 - Tdap) [facility] Start: 1969 Urine screening for protein Diabetes: Urine Protein Screening [facility] Start: 02-02-1968 Hepatitis C screening Hepatitis C Sc reening [facility] Start: 02-02-1960 Diabetic foot examination Diabetes: Foot Exam [facility] Start: 02-02-1960 Glaucoma screening Diabetes: R etinopathy Screening [facility] Start: 1950 Hemoglobin A1c measurement Diabetes: Hemoglobin A1C [facility] Start: 1950 Lipid panel Lipid Panel [facility] Start: 1950 Screening for malignant neoplasm of colon [facility] Start: 1950 Yearly Adult Physical Yearly Adult P hysical [facility] Immunizations Immunization Date Immunization Notes Care Provider Adrienne arreola 08-22-2021 Fluad Quadrivalent 0 .5 ML Intramuscular Prefilled Syringe Milagro Sosa Work Phone: [facility] 250 DO Work Phone: 08-22-2021 influenza virus vaccine, unspecified formulation Javed Hurley [facility] Lam 08-22-2021 Pfizer-BioNTBeijing [employer] COVID-19 Vacc 30 MCG/0.3ML Intramuscular Suspension Milagro Sosa Work Phone: [facility] Comment on above: Result Comment: 2022: [id number] 01-06-2021 SARS-CoV-2 (COVID-19 ) mRNA-1273 vaccine America Poon Jr. [facility] 12-29-2020 SARS-CoV-2 (COVID-19 ) mRNA BNT-162u2 vax Javed Hurley [facility] Comment on above: Result Comment: 2022: [id number] 12-25-2020 Pfizer-BioNTech COVID-19 Vacc 30 MCG/0.3ML Intramuscular Suspension Milagro Sosa Work Phone: [facility] 12-11-2020 SARS-CoV-2 (COVID-19 ) mRNA BNT-162b2 vax Javed Hurley [facility] Comment on above: Result Comment: 2022: [id number] 12-09-2020 SARS-CoV-2 (COVID-19 ) mRNA-1273 vaccine America Poon . [facility] 12-04-2020 Pfizer-BioNTech COVID-19 Vacc 30 MCG/0.3ML Intramuscular Suspension Milagro Sosa Work Phone: [facility] 08-03-2019 influenza virus vaccine, unspecified formulation Javed Hurley [facility] 08-03-2019 influenza, high dose seasonal, preservative-free Milagro Sosa Work Phone: [facility] 250 DO Work Phone: 08-13-2018 influenza virus vaccine, unspecified formulation Javed Hurley [facility] 08-13-2018 Seasonal trivalent influenza vaccine, adjuvanted, preservative free Milagro Sosa Work Phone: [facility] 250 DO Work Phone: 11-03-2017 pneumococcal conjuga te vaccine, 13 valent Milagro Sosa Work Phone: [facility] 11-03-2016 pneumococcal polysaccharide vaccine, 23 valent Milagro Sosa Work Phone: [facility] 11-03-2015 zoster vaccine, live Milagro torre Work Phone: [facility] NEGATED: Highlighted row has not occurred!08-11-2023 influenza virus vaccine, unspecified formulation Alejandro HAYES [facility] NEGATED: Highlighted row has not occurred!01-30-2021 influenza virus vaccine, unspecified formulation America Poon Jr. [facility] Payers Date Payer Category Payer Medicare [id number] 2020 Unknown 1959 Unknown [id number] 1950 Unknown [id number] 2.16. [id number] 1950 Unknown [id number] 2.16.84 [id number] 1950 Unknown [id number] 2.16.84 [id number] 1950 Unknown [id number] 2.16.8 [id number] 1950 Unknown [id number] 2.16.8 [id number] 1950 Unknown [id number] 2.16.8 [id number] 1950 Unknown [id number] 2.16.8 [id number] 1950 Unknown [id number] 2.16.8 [id number] 1950 Unknown [id number] 2.16.8 [id number] Unknown [id number] Social History Date Type Detail Facility Start: 01-29-2024 Social alcohol use Social alcohol us e -[facility] 250 DO Work Phone: Start: 01-30-2021 End: 12-06-2024 Tobacco smoking status Ex-smoker (finding) [facility] Start: 01-29-2024 Sex Assigned At Male [facility] Tobacco smoking status Never [facility] History of tobacco use Current smoker [facility] Work Phone: History of tobacco use Cigarette Smoker U [facility] Work Phone: Start: 01-29-2024 Tobacco use and exposure Smokeless tobacco non-user [facility] Work Phone: Start: 01-29-2024 Alcohol intake Current drinke r of alcohol (finding) [facility] Work Phone: Start: 1950 Sex Assigned At Not on file [facility] Work Phone: Start: 01-19-2024 End: 01-29-2024 Exposure to SARS-CoV-2 (event) Not sure [facility] Functional Status Date Assessment Result Facility 07-16-2024 Functional Status N/A [facility] 07-11-2023 Functional Status N/A [facility] Clinical Notes 03-12-2022 to 07-16-2024 Lonny Saleh, DO - 01/29/2024 9:00 AM EDTPatient Instructions Note Date & Type Note Facility 07-16-2024 Hospital Discharge instructions Patient Education 07/16/2024 09:07:29 Prostate Cancer Screening Prostate Cancer Screening Prostate cancer screening is testing that is done to check for the presence of prostate cancer in men. The prostate gland is a walnut-sized gland that is located below the bladder and in front of the rectum in males. The function of the prostate is to add fluid to semen during ejaculation. Prostate cancer is one of the most common types of cancer in men. Who should have prostate cancer screening? Screening recommendations vary based on age and other risk factors, as well as between the professional organizations who make the recommendations. In general, screening is recommended if: You are age 50 to 70 and have an average risk for prostate cancer. You should talk with your health care provider about your need for screening and how often screening should be done. Because most prostate cancers are slow growing and will not cause , screening in this age group is generally reserved for men who have a 10- to 15-year life expectancy. You are younger than age 50, and you have these risk factors: ?Having a father, brother, or uncle who has been diagnosed with prostate cancer. The risk is higher if your family member's cancer occurred at an early age or if you have multiple family members with prostate cancer at an early age. ?Being a male who is Black or is of [place] or sub-Saharan descent. In general, screening is not recommended if: You are younger than age 40. You are between the ages of 40 and 49 and you have no risk factors. You are 70 years of age or older. At this age, the risks that screening can cause are greater than the benefits that it may provide. If you are at high risk for prostate cancer, your health care provider may recommend that you have screenings more often or that you start screening at a younger age. How is screening for prostate cancer done? The recommended prostate cancer screening test is a blood test called the prostate-specific antigen (PSA) test. PSA is a protein that is made in the prostate. As you age, your prostate naturally produces more PSA. Abnormally high PSA levels may be caused by: Prostate cancer. An enlarged prostate that is not caused by cancer (benign prostatic hyperplasia, or BPH). This condition is very common in older men. A prostate gland infection (prostatitis) or urinary tract infection. Certain medicines such as male hormones (like testosterone) or other medicines that raise testosterone levels. A rectal exam may be done as part of prostate cancer screening to help provide information about the size of your prostate gland. When a rectal exam is performed, it should be done after the PSA level is drawn to avoid any effect on the results. Depending on the PSA results, you may need more tests, such as: A physical exam to check the size of your prostate gland, if not done as part of screening. Blood and imaging tests. A procedure to remove tissue samples from your prostate gland for testing (biopsy). This is the only way to know for certain if you have prostate cancer. What are the benefits of prostate cancer screening? Screening can help to identify cancer at an early stage, before symptoms start and when the cancer can be treated more easily. There is a small chance that screening may lower your risk of dying from prostate cancer. The chance is small because prostate cancer is a slow-growing cancer, and most men with prostate cancer from a different cause. What are the risks of prostate cancer screening? The main risk of prostate cancer screening is diagnosing and treating prostate cancer that would never have caused any symptoms or problems. This is called overdiagnosisand overtreatment. PSA screening cannot tell you if your PSA is high due to cancer or a different cause. A prostate biopsy is the only procedure to diagnose prostate cancer. Even the results of a biopsy may not tell you if your cancer needs to be treated. Slow-growing prostate cancer may not need any treatment other than monitoring, so diagnosing and treating it may cause unnecessary stress or other side effects. Questions to ask your health care provider When should I start prostate cancer screening? What is my risk for prostate cancer? How often do I need screening? What type of screening tests do I need? How do I get my test results? What do my results mean? Do I need treatment? Where to find more information The [place] [employer]: www.cancer.org [place] [employer]: www.auanet.org Contact a health care provider if: You have difficulty urinating. You have pain when you urinate or ejaculate. You have blood in your urine or semen. You have pain in your back or in the area of your prostate. Summary Prostate cancer is a common type of cancer in men. The prostate gland is located below the bladder and in front of the rectum. This gland adds fluid to semen during ejaculation. Prostate cancer screening may identify cancer at an early stage, when the cancer can be treated more easily and is less likely to have spread to other areas of the body. The prostate-specific antigen (PSA) test is the recommended screening test for prostate cancer, but it has associated risks. Discuss the risks and benefits of prostate cancer screening with your health care provider. If you are age 70 or older, the risks that screening can cause are greater than the benefits that it may provide. This information is not intended to replace advice given to you by your health care provider. Make sure you discuss any questions you have with your health care provider. Document Revised: 04/15/2022 Document Reviewed: 04/15/2022 [employer] Patient Education 2023 [employer]. 07/16/2024 09:07:27 Dietary Guidelines to Help Prevent Kidney Stones Dietary Guidelines to Help Prevent Kidney Stones Kidney stones are deposits of minerals and salts that form inside your kidneys. Your risk of developing kidney stones may be greater depending on your diet, your lifestyle, the medicines you take, and whether you have certain medical conditions. Most people can lower their risks of developing kidney stones by following these dietary guidelines. Your dietitian may give you more specific instructions depending on your overall health and the type of kidney stones you tend to develop. What are tips for following this plan? Reading food labels Choose foods with no salt added or low-salt labels. Limit your salt (sodium) intake to less than 1,500 mg a day. Choose foods with calcium for each meal and snack. Try to eat about 300 mg of calcium at each meal. Foods that contain 200 500 mg of calcium a serving include: ?8 oz (237 mL) of milk, ltbepxx-ayvjhfqrwlok-koanb milk, and calcium-fortifiedfruit juice. Calcium-fortified means that calcium has been added to these drinks. ?8 oz (237 mL) of kefir, yogurt, and soy yogurt. ?4 oz (114 g) of tofu. ?1 oz (28 g) of cheese. ?1 cup (150 g) of dried figs. ?1 cup (91 g) of cooked broccoli. ?One 3 oz (85 g) can of sardines or mackerel. Most people need 1,000 1,500 mg of calcium a day. Talk to your dietitian about how much calcium is recommended for you. Shopping Buy plenty of fresh fruits and vegetables. Most people do not need to avoid fruits and vegetables, even if these foods contain nutrients that may contribute to kidney stones. When shopping for convenience foods, choose: ?Whole pieces of fruit. ?Pre-made salads with dressing on the side. ?Low-fat fruit and yogurt smoothies. Avoid buying frozen meals or prepared deli foods. These can be high in sodium. Look for foods with live cultures, such as yogurt and kefir. Choose high-fiber grains, such as whole-wheat breads, oat bran, and wheat cereals. Cooking Do not add salt to food when cooking. Place a salt shaker on the table and allow each person to add their own salt to taste. Use vegetable protein, such as beans, textured vegetable protein (TVP), or tofu, instead of meat in pasta, casseroles, and soups. Meal planning Eat less salt, if told by your dietitian. To do this: ?Avoid eating processed or pre-made food. ?Avoid eating fast food. Eat less animal protein, including cheese, meat, poultry, or fish, if told by your dietitian. To do this: ?Limit the number of times you have meat, poultry, fish, or cheese each week. Eat a diet free of meat at least 2 days a week. ?Eat only one serving each day of meat, poultry, fish, or seafood. ?When you prepare animal proteins, cut pieces into small portion sizes. For most meat and fish, one serving is about the size of the palm of your hand. Eat at least five servings of fresh fruits and vegetables each day. To do this: ?Keep fruits and vegetables on hand for snacks. ?Eat one piece of fruit or a handful of berries with breakfast. ?Have a salad and fruit at lunch. ?Have two kinds of vegetables at dinner. You may be told to limit foods that are high in a substance called oxalate. These include: ?Spinach (cooked), rhubarb, beets, sweet potatoes, and [place] chard. ?Peanuts. ?Potato chips, irish fries, and baked potatoes with skin on. ?Nuts and nut products. ?Chocolate. If you regularly take a diuretic medicine, make sure to eat at least 1 or 2 servings of fruits or vegetables that are high in potassium each day. These include: ?Avocado. ?Banana. ?[place], prune, carrot, or tomato juice. ?Baked potato. ?Cabbage. ?Beans and split peas. Lifestyle Drink enough fluid to keep your urine pale yellow. This is the most important thing you can do. Spread your fluid intake throughout the day. If you drink alcohol: ?Limit how much you have to: ?0 1 drink a day for women who are not . ?0 2 drinks a day for men. ?Know how much alcohol is in your drink. In the [place] one drink equals one 12 oz bottle of beer (355 mL), one 5 oz glass of wine (148 mL), or one 1 oz glass of hard liquor (44 mL). Lose weight if told by your health care provider. Work with your dietitian to find an eating plan and weight loss strategies that work best for you. General information Talk to your health care provider and dietitian about taking daily supplements. Depending on your health and the cause of your kidney stones, you may be told: ?Do not take high-dose supplements of vitamin C (1,000 mg a day or more). ?To take a calcium supplement. ?To take a daily probiotic supplement. ?To take other supplements such as magnesium, fish oil, or vitamin B6. Take myib-mxe-eodvelr and prescription medicines only as told by your health care provider. These include supplements. What foods should I limit? Limit your intake of the following foods, or eat them as told by your dietitian. Vegetables Spinach. Rhubarb. Beets. Canned vegetables. Pickles. Olives. Baked potatoes with skin. Grains Wheat bran. Baked goods. Salted crackers. Cereals high in sugar. Meats and other proteins Nuts. Nut butters. Large portions of meat, poultry, or fish. Salted, precooked, or cured meats, such as sausages, meat loaves, and hot dogs. Dairy Cheeses. Beverages Regular soft drinks. Regular vegetable juice. Seasonings and condiments Seasoning blends with salt. Salad dressings. Soy sauce. Ketchup. Barbecue sauce. Other foods Canned soups. Canned pasta sauce. Casseroles. Pizza. Lasagna. Frozen meals. Potato chips. Indonesian fries. The items listed above may not be a complete list of foods and beverages you should limit. Contact a dietitian for more information. What foods should I avoid? Talk to your dietitian about specific foods you should avoid based on the type of kidney stones you have and your overall health. Fruits Grapefruit. The item listed above may not be a complete list of foods and beverages you should avoid. Contact a dietitian for more information. Summary Kidney stones are deposits of minerals and salts that form inside your kidneys. You can lower your risk of kidney stones by making changes to your diet. The most important thing you can do is drink enough fluid. Drink enough fluid to keep your urine pale yellow. Talk to your dietitian about how much calcium you should have each day, and eat less salt and animal protein as told by your dietitian. This information is not intended to replace advice given to you by your health care provider. Make sure you discuss any questions you have with your health care provider. Document Revised: 01/30/2023 Document Reviewed: 01/30/2023 [employer] Patient Education 2023 [employer]. Follow Up Care 07/11/2023 09:08:33 With:SIDNEY ROONEY, Alejandro Haddad, URL Address: [address] [place], [place] [id number]- When: Unknown [facility] 07-16-2024 Note Patient Education Nephrology Dietary Guidelines to Help Prevent Kidney Stones Kidney stones are deposits of minerals and salts that form inside your kidneys. Your risk of developing kidney stones may be greater depending on your diet, your lifestyle, the medicines you take, and whether you have certain medical conditions. Most people can lower their risks of developing kidney stones by following these dietary guidelines. Your dietitian may give you more specific instructions depending on your overall health and the type of kidney stones you tend to develop. What are tips for following this plan? Reading food labels ? Choose foods with no salt added or low-salt labels. Limit your salt (sodium) intake to less than 1,500 mg a day. ? Choose foods with calcium for each meal and snack. Try to eat about 300 mg of calcium at each meal. Foods that contain 200?500 mg of calcium a serving include: ? 8 oz (237 mL) of milk, cykjwwz-aujbpzxsgvgg-dulxd milk, and calcium-fortifiedfruit juice. Calcium-fortified means that calcium has been added to these drinks. ? 8 oz (237 mL) of kefir, yogurt, and soy yogurt. ? 4 oz (114 g) of tofu. ? 1 oz (28 g) of cheese. ? 1 cup (150 g) of dried figs. ? 1 cup (91 g) of cooked broccoli. ? One 3 oz (85 g) can of sardines or mackerel. Most people need 1,000?1,500 mg of calcium a day. Talk to your dietitian about how much calcium is recommended for you. Shopping ? Buy plenty of fresh fruits and vegetables. Most people do not need to avoid fruits and vegetables, even if these foods contain nutrients that may contribute to kidney stones. ? When shopping for convenience foods, choose: ? Whole pieces of fruit. ? Pre-made salads with dressing on the side. ? Low-fat fruit and yogurt smoothies. ? Avoid buying frozen meals or prepared deli foods. These can be high in sodium. ? Look for foods with live cultures, such as yogurt and kefir. ? Choose high-fiber grains, such as whole-wheat breads, oat bran, and wheat cereals. Cooking ? Do not add salt to food when cooking. Place a salt shaker on the table and allow each person to add their own salt to taste. ? Use vegetable protein, such as beans, textured vegetable protein (TVP), or tofu, instead of meat in pasta, casseroles, and soups. Meal planning ? Eat less salt, if told by your dietitian. To do this: ? Avoid eating processed or pre-made food. ? Avoid eating fast food. ? Eat less animal protein, including cheese, meat, poultry, or fish, if told by your dietitian. To do this: ? Limit the number of times you have meat, poultry, fish, or cheese each week. Eat a diet free of meat at least 2 days a week. ? Eat only one serving each day of meat, poultry, fish, or seafood. ? When you prepare animal proteins, cut pieces into small portion sizes. For most meat and fish, one serving is about the size of the palm of your hand. ? Eat at least five servings of fresh fruits and vegetables each day. To do this: ? Keep fruits and vegetables on hand for snacks. ? Eat one piece of fruit or a handful of berries with breakfast. ? Have a salad and fruit at lunch. ? Have two kinds of vegetables at dinner. ? You may be told to limit foods that are high in a substance called oxalate. These include: ? Spinach (cooked), rhubarb, beets, sweet potatoes, and [place] chard. ? Peanuts. ? Potato chips, irish fries, and baked potatoes with skin on. ? Nuts and nut products. ? Chocolate. ? If you regularly take a diuretic medicine, make sure to eat at least 1 or 2 servings of fruits or vegetables that are high in potassium each day. These include: ? Avocado. ? Banana. ? [place], prune, carrot, or tomato juice. ? Baked potato. ? Cabbage. ? Beans and split peas. Lifestyle ? Drink enough fluid to keep your urine pale yellow. This is the most important thing you can do. Spread your fluid intake throughout the day. ? If you drink alcohol: ? Limit how much you have to: ? 0?1 drink a day for women who are not . ? 0?2 drinks a day for men. ? Know how much alcohol is in your drink. In the [place] one drink equals one 12 oz bottle of beer (355 mL), one 5 oz glass of wine (148 mL), or one 1? oz glass of hard liquor (44 mL). ? Lose weight if told by your health care provider. Work with your dietitian to find an eating plan and weight loss strategies that work best for you. General information ? Talk to your health care provider and dietitian about taking daily supplements. Depending on your health and the cause of your kidney stones, you may be told: ? Do not take high-dose supplements of vitamin C (1,000 mg a day or more). ? To take a calcium supplement. ? To take a daily probiotic supplement. ? To take other supplements such as magnesium, fish oil, or vitamin B6. ? Take xfwi-nwe-gbvhjvs and prescription medicines only as told by your health care provider. These include suppleme (more content not included)... [facility] 01-29-2024 History of Present illness Narrative Subjective Robyn Ruth is a 73 y.o. male Chief Complaint Annual Exam 73-year-old gentleman returns for 1 year follow-up he is doing well he has no cardiovascular complaints, hospitalizations or nitrate usage. He is walking daily on a regular basis without claudication or shortness of breath or angina. He has a history of remote CABG and aortobifem bypass surgery performed in [place] in 2009. He moved locally and underwent stress perfusion imaging with myself in 2021 that was normal. We have no recent laboratories. He has underlying diabetes, hyperlipidemia and hypertension all well-controlled and remains on appropriate GDMT as reviewed today Recommendations, obtain lipid panel and follow-up in 1 year, continue excellent lifestyle and activity level. Review of Systems All other systems reviewed and are negative. Vitals: 01/29/24 0903 BP: 120/70 BP Location: Right arm Patient Position: Sitting Pulse: 72 Weight: 84.8 kg (187 lb) Height: 1.778 m (5' 10 ) Objective Physical Exam Constitutional: Appearance: Normal appearance. HENT: Nose: Nose normal. Neck: Vascular: No carotid bruit. Cardiovascular: Rate and Rhythm: Normal rate. Pulses: Normal pulses. Heart sounds: Normal heart sounds. Pulmonary: Effort: Pulmonary effort is normal. Abdominal: General: Bowel sounds are normal. Palpations: Abdomen is soft. Musculoskeletal: General: Normal range of motion. Cervical back: Normal range of motion. Right lower leg: No edema. Left lower leg: No edema. Skin: General: Skin is warm and dry. Neurological: General: No focal deficit present. Mental Status: He is alert. Psychiatric: Mood and Affect: Mood normal. Behavior: Behavior normal. Thought Content: Thought content normal. Judgment: Judgment normal. Allergies Lisinopril Current Medications Current Outpatient Medications: amLODIPine (Norvasc) 5 mg tablet, Take 1 tablet (5 mg) by mouth once daily., Disp: , Rfl: aspirin 81 mg EC tablet, Take 1 tablet (81 mg) by mouth once daily., Disp: , Rfl: dutasteride (Avodart) 0.5 mg capsule, Take 1 capsule (0.5 mg) by mouth once daily., Disp: , Rfl: metFORMIN (Glucophage) 500 mg tablet, Take 1 tablet (500 mg) by mouth 4 times a day with meals., Disp: , Rfl: metoprolol tartrate (Lopressor) 25 mg tablet, Take 1 tablet (25 mg) by mouth once daily., Disp: , Rfl: pravastatin (Pravachol) 80 mg tablet, Take 1 tablet (80 mg) by mouth once daily., Disp: , Rfl: tamsulosin (Flomax) 0.4 mg 24 hr capsule, Take 1 capsule (0.4 mg) by mouth once daily., Disp: , Rfl: timolol (Timoptic) 0.5 % ophthalmic solution, Administer 1 drop into affected eye(s) every 12 hours., Disp: , Rfl: traZODone (Desyrel) 100 mg tablet, Take 1 tablet (100 mg) by mouth once daily., Disp: , Rfl: valsartan (Diovan) 40 mg tablet, Take 1 tablet (40 mg) by mouth 2 times a day., Disp: , Rfl: Assessment/Plan 1. ASHD (arteriosclerotic heart disease) 2. Arteriosclerosis of arterial coronary artery bypass graft 3. H/O klkyp-gphpv-eexatoh bypass 4. Hyperlipidemia, unspecified hyperlipidemia type 5. Former cigarette smoker Scribe Attestation By signing my name below, I, Agustin Wyatt LPN attest that this documentation has been prepared under the direction and in the presence of Lonny Saleh DO. Provider Attestation - Scribe documentation All medical record entries made by the Scribe were at my direction and personally dictated by me. I have reviewed the chart and agree that the record accurately reflects my personal performance of the history, physical exam, discussion and plan. documented in this encounter [facility] Work Phone: 01-29-2024 Instructions Mechelle Austin LPN - 01/29/2024 9:00 AM EDT Please bring all medicines, vitamins, and herbal supplements with you when you come to the office. Prescriptions will not be filled unless you are compliant with your follow up appointments or have a follow up appointment scheduled as per instruction of your physician. Refills should be requested at the time of your visit. BMI was above normal measurement. Current weight: 84.8 kg (187 lb) Weight change since last visit (-) denotes wt loss -4 lbs Weight loss needed to achieve BMI 25: 13.1 Lbs Weight loss needed to achieve BMI 30: -21.6 Lbs Provided instructions on dietary changes Provided instructions on exercise. documented in this encounter [facility] Work Phone: 07-11-2023 Hospital Discharge instructions Patient Education 07/11/2023 08:52:06 Prostate Cancer Screening Prostate Cancer Screening Prostate cancer screening is testing that is done to check for the presence of prostate cancer in men. The prostate gland is a walnut-sized gland that is located below the bladder and in front of the rectum in males. The function of the prostate is to add fluid to semen during ejaculation. Prostate cancer is one of the most common types of cancer in men. Who should have prostate cancer screening? Screening recommendations vary based on age and other risk factors, as well as between the professional organizations who make the recommendations. In general, screening is recommended if: You are age 50 to 70 and have an average risk for prostate cancer. You should talk with your health care provider about your need for screening and how often screening should be done. Because most prostate cancers are slow growing and will not cause , screening in this age group is generally reserved for men who have a 10- to 15-year life expectancy. You are younger than age 50, and you have these risk factors: ?Having a father, brother, or uncle who has been diagnosed with prostate cancer. The risk is higher if your family member's cancer occurred at an early age or if you have multiple family members with prostate cancer at an early age. ?Being a male who is Black or is of [place] or sub-Saharan descent. In general, screening is not recommended if: You are younger than age 40. You are between the ages of 40 and 49 and you have no risk factors. You are 70 years of age or older. At this age, the risks that screening can cause are greater than the benefits that it may provide. If you are at high risk for prostate cancer, your health care provider may recommend that you have screenings more often or that you start screening at a younger age. How is screening for prostate cancer done? The recommended prostate cancer screening test is a blood test called the prostate-specific antigen (PSA) test. PSA is a protein that is made in the prostate. As you age, your prostate naturally produces more PSA. Abnormally high PSA levels may be caused by: Prostate cancer. An enlarged prostate that is not caused by cancer (benign prostatic hyperplasia, or BPH). This condition is very common in older men. A prostate gland infection (prostatitis) or urinary tract infection. Certain medicines such as male hormones (like testosterone) or other medicines that raise testosterone levels. A rectal exam may be done as part of prostate cancer screening to help provide information about the size of your prostate gland. When a rectal exam is performed, it should be done after the PSA level is drawn to avoid any effect on the results. Depending on the PSA results, you may need more tests, such as: A physical exam to check the size of your prostate gland, if not done as part of screening. Blood and imaging tests. A procedure to remove tissue samples from your prostate gland for testing (biopsy). This is the only way to know for certain if you have prostate cancer. What are the benefits of prostate cancer screening? Screening can help to identify cancer at an early stage, before symptoms start and when the cancer can be treated more easily. There is a small chance that screening may lower your risk of dying from prostate cancer. The chance is small because prostate cancer is a slow-growing cancer, and most men with prostate cancer from a different cause. What are the risks of prostate cancer screening? The main risk of prostate cancer screening is diagnosing and treating prostate cancer that would never have caused any symptoms or problems. This is called overdiagnosisand overtreatment. PSA screening cannot tell you if your PSA is high due to cancer or a different cause. A prostate biopsy is the only procedure to diagnose prostate cancer. Even the results of a biopsy may not tell you if your cancer needs to be treated. Slow-growing prostate cancer may not need any treatment other than monitoring, so diagnosing and treating it may cause unnecessary stress or other side effects. Questions to ask your health care provider When should I start prostate cancer screening? What is my risk for prostate cancer? How often do I need screening? What type of screening tests do I need? How do I get my test results? What do my results mean? Do I need treatment? Where to find more information The [place] [employer]: www.cancer.org [place] [employer]: www.auanet.org Contact a health care provider if: You have difficulty urinating. You have pain when you urinate or ejaculate. You have blood in your urine or semen. You have pain in your back or in the area of your prostate. Summary Prostate cancer is a common type of cancer in men. The prostate gland is located below the bladder and in front of the rectum. This gland adds fluid to semen during ejaculation. Prostate cancer screening may identify cancer at an early stage, when the cancer can be treated more easily and is less likely to have spread to other areas of the body. The prostate-specific antigen (PSA) test is the recommended screening test for prostate cancer, but it has associated risks. Discuss the risks and benefits of prostate cancer screening with your health care provider. If you are age 70 or older, the risks that screening can cause are greater than the benefits that it may provide. This information is not intended to replace advice given to you by your health care provider. Make sure you discuss any questions you have with your health care provider. Document Revised: 04/15/2022 Document Reviewed: 04/15/2022 [employer] Patient Education 2022 [employer]. Follow Up Care 03/12/2022 09:06:51 With:SIDNEY ROONEY, Alejandro Haddad, URL Address: [address] [place], [place] [id number]- When: Unknown [facility] 03-12-2022 Hospital Discharge instructions Patient Education 03/12/2022 08:51:25 Benign Prostatic Hyperplasia Benign Prostatic Hyperplasia Benign prostatic hyperplasia (BPH) is an enlarged prostate gland that is caused by the normal aging process and not by cancer. The prostate is a walnut-sized gland that is involved in the production of semen. It is located in front of the rectum and below the bladder. The bladder stores urine and the urethra is the tube that carries the urine out of the body. The prostate may get bigger as a man gets older. An enlarged prostate can press on the urethra. This can make it harder to pass urine. The build-up of urine in the bladder can cause infection. Back pressure and infection may progress to bladder damage and kidney (renal) failure. What are the causes? This condition is part of a normal aging process. However, not all men develop problems from this condition. If the prostate enlarges away from the urethra, urine flow will not be blocked. If it enlarges toward the urethra and compresses it, there will be problems passing urine. What increases the risk? This condition is more likely to develop in men over the age of 50 years. What are the signs or symptoms? Symptoms of this condition include: Getting up often during the night to urinate. Needing to urinate frequently during the day. Difficulty starting urine flow. Decrease in size and strength of your urine stream. Leaking (dribbling) after urinating. Inability to pass urine. This needs immediate treatment. Inability to completely empty your bladder. Pain when you pass urine. This is more common if there is also an infection. Urinary tract infection (UTI). How is this diagnosed? This condition is diagnosed based on your medical history, a physical exam, and your symptoms. Tests will also be done, such as: A post-void bladder scan. This measures any amount of urine that may remain in your bladder after you finish urinating. A digital rectal exam. In a rectal exam, your health care provider checks your prostate by putting a lubricated, gloved finger into your rectum to feel the back of your prostate gland. This exam detects the size of your gland and any abnormal lumps or growths. An exam of your urine (urinalysis). A prostate specific antigen (PSA) screening. This is a blood test used to screen for prostate cancer. An ultrasound. This test uses sound waves to electronically produce a picture of your prostate gland. Your health care provider may refer you to a specialist in kidney and prostate diseases (urologist). How is this treated? Once symptoms begin, your health care provider will monitor your condition (active surveillance or watchful waiting). Treatment for this condition will depend on the severity of your condition. Treatment may include: Observation and yearly exams. This may be the only treatment needed if your condition and symptoms are mild. Medicines to relieve your symptoms, including: ?Medicines to shrink the prostate. ?Medicines to relax the muscle of the prostate. Surgery in severe cases. Surgery may include: ?Prostatectomy. In this procedure, the prostate tissue is removed completely through an open incision or with a laparoscope or robotics. ?Transurethral resection of the prostate (TURP). In this procedure, a tool is inserted through the opening at the tip of the penis (urethra). It is used to cut away tissue of the inner core of the prostate. The pieces are removed through the same opening of the penis. This removes the blockage. ?Transurethral incision (TUIP). In this procedure, small cuts are made in the prostate. This lessens the prostate's pressure on the urethra. ?Transurethral microwave thermotherapy (TUMT). This procedure uses microwaves to create heat. The heat destroys and removes a small amount of prostate tissue. ?Transurethral needle ablation (TUNA). This procedure uses radio frequencies to destroy and remove a small amount of prostate tissue. ?Interstitial laser coagulation (ILC). This procedure uses a laser to destroy and remove a small amount of prostate tissue. ?Transurethral electrovaporization (TUVP). This procedure uses electrodes to destroy and remove a small amount of prostate tissue. ?Prostatic urethral lift. This procedure inserts an implant to push the lobes of the prostate away from the urethra. Follow these instructions at home: Take rzdo-bfm-cpeghhf and prescription medicines only as told by your health care provider. Monitor your symptoms for any changes. Contact your health care provider with any changes. Avoid drinking large amounts of liquid before going to bed or out in public. Avoid or reduce how much caffeine or alcohol you drink. Give yourself time when you urinate. Keep all follow-up visits as told by your health care provider. This is important. Contact a health care provider if: You have unexplained back pain. Your symptoms do not get better with treatment. You develop side effects from the medicine you are taking. Your urine becomes very dark or has a bad smell. Your lower abdomen becomes distended and you have trouble passing your urine. Get help right away if: You have a fever or chills. You suddenly cannot urinate. You feel lightheaded, or very dizzy, or you faint. There are large amounts of blood or clots in the urine. Your urinary problems become hard to manage. You develop moderate to severe low back or flank pain. The flank is the side of your body between the ribs and the hip. These symptoms may represent a serious problem that is an emergency. Do not wait to see if the symptoms will go away. Get medical help right away. Call your local emergency services (911 in the [place] Do not drive yourself to the hospital. Summary Benign prostatic hyperplasia (BPH) is an enlarged prostate that is caused by the normal aging process and not by cancer. An enlarged prostate can press on the urethra. This can make it hard to pass urine. This condition is part of a normal aging process and is more likely to develop in men over the age of 50 years. Get help right away if you suddenly cannot urinate. This information is not intended to replace advice given to you by your health care provider. Make sure you discuss any questions you have with your health care provider. Document Released: 10/20/2006 Document Revised: 09/14/2019 Document Reviewed: 11/24/2017 [employer] Patient Education 2020 [employer]. Follow Up Care 01/30/2021 14:03:07 With:America Poon Jr., MD, URO Address: [facility] [address], [place] [address]- When:03/12/2023 Comments:with KUB and PSA [facility] Evaluation + Plan note Future Appointments Appointment Date:03/18/2023 08:30:00 AM Scheduled Provider:America Poon Jr., MD Location:[facility] Appointment Type:URO Office Visit Diagnostic Tests PendingPSA Total 03/12/22PSA Total 03/08/22 [facility]rology [facility] Evaluation + Plan note Future Appointments Appointment Date:03/18/2023 08:30:00 AM Scheduled Provider:America Pono Jr., MD Location:[facility] Appointment Type:URO Office Visit Appointment Date:08/11/2023 01:20:00 PM Scheduled Provider:Javed Hurley MD Location:[facility] Appointment Type: Open [facility] Evaluation + Plan note Future Appointments Appointment Date:08/11/2023 01:20:00 PM Scheduled Provider:Javed Hurley MD [facility] Type: Open Appointment Date:07/16/2024 08:15:00 AM Scheduled Provider:Alejandro HAYES MD Location:[facility] Appointment Type:URO Office Visit Diagnostic Tests PendingPSA Total 06/03/24 [facility] Evaluation + Plan note Future Appointments Appointment Date:07/22/2025 08:00:00 AM Scheduled Provider:Alejandro HAYES MD Location:[facility] Appointment Type:URO Office Visit Diagnostic Tests PendingPSA Total 06/03/25 [facility] Evaluation + Plan note Future Appointments Appointment Date:06/06/2025 02:00:00 PM Scheduled Provider:Javed Hurley MD Location:[facility] Appointment Type:FM Open Appointment Date:07/22/2025 08:00:00 AM Scheduled Provider:Alejandro HAYES MD Location:[facility] Appointment Type:URO Office Visit Diagnostic Tests PendingCBC w/ Auto Diff 12/06/24Comprehensive Metabolic Panel 12/06/2487PcgX1a 12/06/24Microalbumin Level Urine 12/06/24Lipid Panel 12/06/24 [facility] Evaluation note Diagnosis ASHD (arteriosclerotic heart disease) Coronary atherosclerosis of unspecified type of vessel, [place] or graft Arteriosclerosis of arterial coronary artery bypass graft H/O pyymv-vpddo-iwmscti bypass Hyperlipidemia, unspecified hyperlipidemia type Former cigarette smoker Personal history of tobacco use, presenting hazards to health Hypertension, unspecified type documented in this encounter [facility] Work Phone: Hospital course Narrative No data available for this section [facility] Hospital Discharge instructions No data available for this section [facility] No data available for this section [facility] Summary Purpose Family History No Family History Records FoundUnknown Family Member Name Dates Details Family history of cardiovasc ular disease: Brother(V17.49, Z82.49) Status:Active Family history of diabetes m ellitus: Paternal Grandmother(V18.0, Z83.3) Status:Active Family history of myocardial infarction: Father, Brother(V17.3, Z82.49) Status:Active S/P CABG x 3: Brother(V45.81 , Z95.1) Status:Active Unknown Family Member Name Dates Details Family history of cardiovasc ular disease: Brother(V17.49, Z82.49) Status:Active Family history of diabetes m ellitus: Paternal Grandmother(V18.0, Z83.3) Status:Active Family history of myocardial infarction: Father, Brother(V17.3, Z82.49) Status:Active S/P CABG x 3: Brother(V45.81 , Z95.1) Status:Active Unknown Family Member Name Dates Details Family history of cardiovasc ular disease: Brother(V17.49, Z82.49) Status:Active Family history of diabetes m ellitus: Paternal Grandmother(V18.0, Z83.3) Status:Active Family history of myocardial infarction: Father, Brother(V17.3, Z82.49) Status:Active S/P CABG x 3: Brother(V45.81 , Z95.1) Status:Active Unknown Family Member Name Dates Details Family history of cardiovasc ular disease: Brother(V17.49, Z82.49) Status:Active Family history of diabetes m ellitus: Paternal Grandmother(V18.0, Z83.3) Status:Active Family history of myocardial infarction: Father, Brother(V17.3, Z82.49) Status:Active S/P CABG x 3: Brother(V45.81 , Z95.1) Status:Active Unknown Family Member Name Dates Details Family history of cardiovasc ular disease: Brother(V17.49, Z82.49) Status:Active Family history of diabetes m ellitus: Paternal Grandmother(V18.0, Z83.3) Status:Active Family history of myocardial infarction: Father, Brother(V17.3, Z82.49) Status:Active S/P CABG x 3: Brother(V45.81 , Z95.1) Status:Active Advance Directives No Advanced Directives Records FoundNo Advanced Directives Records FoundNo Advanced Directives Records FoundNo Advanced Directives Records FoundNo Advanced Directives Records FoundNo Advanced Directives Records FoundNo Advanced Directives Records FoundNo Advanced Directives Records FoundNo Advanced Directives Records FoundNo Advanced Directives Records FoundNo Advanced Directives Records FoundNo Advanced Directives Records FoundNo Advanced Directives Records FoundNo Advanced Directives Records Found Chief Complaint * ROBYN RUTH is being seen for an annual follow-up of. * Patient is a 71-year-old gentleman returns and is doing well he describes no cardiovascular events,heart failure hospitalizations or angina or nitrate usage of. He is actually ambulating very well on a regular basis. He has a history of prior aortobifem revascularization in 2011 that was preceded by multivessel CABG in 2010 both which occurred in [facility]. He has underlying hypertension and diabetes both of which are controlled, his last A1c is 6.4%. * He has not had any recent stress testing that he can recall since his bypass surgery, and certainlynone since he is moved to the [facility]. * Recommendations: Obtain lipid panel, proceed with routine treadmill stress testing electively (appropriate by guideline criteria given his history of multivessel CABG 11 years ago), obtain lipid panel will follow-up in 1 year * ROBYN RUTH is being seen for an annual follow-up of. * Patient is a 71-year-old gentleman returns and is doing well he describes no cardiovascular events,heart failure hospitalizations or angina or nitrate usage of. He is actually ambulating very well on a regular basis. He has a history of prior aortobifem revascularization in 2011 that was preceded by multivessel CABG in 2010 both which occurred in [facility]. He has underlying hypertension and diabetes both of which are controlled, his last A1c is 6.4%. * He has not had any recent stress testing that he can recall since his bypass surgery, and certainlynone since he is moved to the [facility]. * Recommendations: Obtain lipid panel, proceed with routine treadmill stress testing electively (appropriate by guideline criteria given his history of multivessel CABG 11 years ago), obtain lipid panel will follow-up in 1 year * ROBYN RUTH is being seen for an annual follow-up of. * Patient is a 71-year-old gentleman returns and is doing well he describes no cardiovascular events,heart failure hospitalizations or angina or nitrate usage of. He is actually ambulating very well on a regular basis. He has a history of prior aortobifem revascularization in 2011 that was preceded by multivessel CABG in 2010 both which occurred in [facility]. He has underlying hypertension and diabetes both of which are controlled, his last A1c is 6.4%. * He has not had any recent stress testing that he can recall since his bypass surgery, and certainlynone since he is moved to the [facility]. * Recommendations: Obtain lipid panel, proceed with routine treadmill stress testing electively (appropriate by guideline criteria given his history of multivessel CABG 11 years ago), obtain lipid panel will follow-up in 1 year * ROBYN RUTH is being seen for an annual follow-up of. * 72-year-old gentleman returns for follow-up he is doing well he denies any cardiovascular complaints. He is walking daily and remains asymptomatic. In April 2022 he underwent routine treadmill stress testing, on the [employer] protocol, at 10.1 METS at 88% of his maximum heart rate for 10 minutes without any symptoms or ECG changes. He has a history of remote CABG in 2009 followed by aortic bifemoral bypass in 2009 in [facility] with clinically excellent result that continues. * His comorbidities continue to include diabetes and hyperlipidemia, we have no recent blood work * Recommendations, obtain lipid panel, follow-up in 1 year continue excellent lifestyle choices, exercise and activity level. Reason for Referral Specialty Diagnoses / Procedures Referred By Devante nogueira Referred To Contact Diagnoses Hypertension, unspecified type Lonny Saleh DO [address] [place] [address] 2, [place] [phone] Referral ID Status Reason Start Date Expiration Date V isits Requested Visits Authorized [id number] Pending Review 1 1 Specialty Diagnoses / Procedures Referred By Devante nogueira Referred To Contact Cardiology Diagnoses ASHD (arteriosclerotic heart disease) Procedures Follow Up In Cardiology Lonny Saleh DO [address] [place] [address] 2, [address] [address] Lonny Saleh, [address], [place] [phone] Referral ID Status Reason Start Date Expiration Date V isits Requested Visits Authorized [id number] Authorized 01/29/2024 01/28/2025 1 1 Additional Source Comments (unrecognized sect ion and content) No Status Records FoundNo Status Records FoundNo Status Records FoundNo Status Records FoundNo Status Records FoundNo Status Records FoundNo Status Records FoundNo Status Records FoundNo Status Records FoundNo Status Records FoundNo Status Records FoundNo Status Records FoundNo Status Records FoundNo Status Records Found INFORMATION SOURCE (unrecogn ized section and content) DATE CREATED AUTHOR 04/27/2018 Bishnu Santiagoton DATE CREATED AUTHOR AUTHOR'S ORGANIZ ATION 12/21/2019 [facility] DATE CREATED AUTHOR AUTHOR'S ORGANIZ ATION 04/11/2022 [facility] DATE CREATED AUTHOR AUTHOR'S ORGANIZ ATION 01/17/2023 [facility] Center DATE CREATED AUTHOR AUTHOR'S ORGANIZ ATION 01/17/2023 [facility] DATE CREATED AUTHOR AUTHOR'S ORGANIZ ATION 03/01/2023 [facility]ital DATE CREATED AUTHOR AUTHOR'S ORGANIZ ATION 01/30/2024 [facility] DATE CREATED AUTHOR AUTHOR'S ORGANIZ ATION 12/08/2024 Coronel Haseeb [facility] ical Center DATE CREATED AUTHOR AUTHOR'S ORGANIZ ATION 12/10/2024 Coronel Ahseeb [facility] ical Center DATE CREATED AUTHOR AUTHOR'S ORGANIZ ATION 12/13/2024 [facility] ical Center Patient Care team informatio n (unrecognized section and content) [employer] Relationship Specialty Start Date End Date Milagro Sosa MD [address] Lidia Cummings MD [facility] [place] [address] PCP - General 08/03/20 Lonny Saleh DO [address] [facility] [address] [place] [address] Consulting Physician Cardiology 01/29/24 Reason for Visit (unrecogniz ed section and content) Reason Comments Annual Exam 1yr FOR RECORDS PERTAINING TO PATIENTS WHO ARE OR HAVE BEEN ENROLLED IN A CHEMICAL DEPENDENCY/SUBSTANCEABUSE PROGRAM, SOME INFORMATION MAY BE OMITTED. This clinical summary was aggregated from multiple sources. Caution should be exercised in using it in the provision of clinical care. This summary normalizes information from multiple sources, and as a consequence, information in this document may materially change the coding, format and clinical context of patient data. In addition, data may be omitted in some cases. CLINICAL DECISIONS SHOULD BE BASED ON THE PRIMARY CLINICAL RECORDS. [employer] [facility]. provides no warranty or guarantee of the accuracy or completeness of information in this document.
--- NOTE | 2025-01-31 05:39 | ECG_ITS ---
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 Measurements Intervals [place] Rate: 83 P: 78 NV: 210 QRS: 92 QRSD: 92 T: -73 QT: 342 QTc: 382 Interpretive Statements 1100 Sinus rhythm 2231 First degree AV block 3114 Cannot rule out anterior myocardial infarction, age undetermined [address] depression 4564 Twave abnormality, possible lateral ischemia 4664 Twave abnormality, possible inferior ischemia 7102 Moderate right axis deviation 9150 abnormal ECG No previous ECG available for comparison Electronically Signed On 01-31-2025 20:24:06 EDT by LION NGUYEN M.D.
--- NOTE | 2025-01-31 05:42 | ED.WEAKNESS1 ---
Documented by User: Kelly Jones MD 01/31/25 22:33 HPI - Weakness General Chief complaint: Weakness Stated complaint: WEAKNESS Time Seen by Provider: 01/31/25 05:19 Source: patient Mode of arrival: ambulance Limitations: no limitations History of Present Illness HPI Narrative: This 74-year-old male who lives alone is brought to the emergency department by EMS from home. The patient states that he is very dizzy and weak. The patient states that on Friday, 5 days ago, he was outside for a walk and tripped. He injured his left great toe where he has bruising and a subungual hematoma of the toenail. At that time he also struck his face and has right periorbital swelling and bruising, he scratched his glasses and also hit the right side of his chest and has posterior right sided rib pain. He states that since that time he has been very weak at home and when he tries to get out of his chair is too weak to get up. He was able to get up and make himself a pizza yesterday but has otherwise not been eating or drinking. He denies any neck pain. He has no focal weakness numbness or tingling but generalized weakness. He has no shortness of breath except when he tries to take a deep breath because he has pain in his right posterior thorax where he states he struck his ribs when he fell. He has no blurred vision or slurred speech. He has swelling of the upper lip and the healing laceration on the inner aspect of the upper lip. He did not injure his teeth. He denies any abdominal pain. He states he thinks he has been urinating normally but cannot recall exactly when he last urinated again he has not been eating or drinking normally since that time due to generalized weakness. Related Data Home Medications ?Medication ?Instructions ?Recorded ?Confirmed amlodipine 5 mg tablet 5 mg PO DAILY 01/31/25 01/31/25 aspirin 81 mg tablet,delayed 81 mg PO DAILY 01/31/25 01/31/25 release (Adult Aspirin Regimen) dutasteride 0.5 mg capsule 0.5 mg PO DAILY 01/31/25 01/31/25 latanoprost 0.005 % eye drops 1 drp ophthalmic (eye) DAILY 01/31/25 01/31/25 metformin 500 mg tablet,extended 2,000 mg PO BID 01/31/25 01/31/25 release 24 hr metoprolol succinate 25 mg 25 mg PO DAILY 01/31/25 01/31/25 tablet,extended release 24 hr pravastatin 80 mg tablet 80 mg PO DAILY 01/31/25 01/31/25 tamsulosin 0.4 mg capsule 0.4 mg PO DAILY 01/31/25 01/31/25 timolol maleate 0.5 % eye drops 1 drp ophthalmic (eye) DAILY 01/31/25 01/31/25 trazodone 150 mg tablet 150 mg PO .HS 01/31/25 01/31/25 valsartan 40 mg tablet 40 mg PO BID 01/31/25 01/31/25 Allergies Allergy/AdvReac Type Severity Reaction Status Date / Time No Known Drug Allergies Allergy Verified 01/31/25 05:20 Review of Systems ROS Status of ROS 10 or more systems reviewed and unremarkable except as noted in history and below PFSH PFSH Social History Little interest or pleasure in doing things: not at all Feeling down, depressed, or hopeless: not at all Exam Narrative Exam Narrative: Vital signs and Nursing Notes reviewed: Is afebrile with a normal pulse, blood pressure is elevated 167/61, he is not hypoxic with pulse ox of 97% on room air General: Awake, alert, oriented, no acute distress, lying comfortably on the stretcher HEENT: Normocephalic, there is a healing laceration in the right eyebrow and right periorbital ecchymosis with a small amount of subconjunctival hemorrhage. Extraocular muscles are intact without entrapment. There is mild swelling and bruising to the upper lip with a healing laceration on the inner aspect of the upper lip. No dental injury is appreciated. Neck: Supple, no midline bony vertebral tenderness or step-off Chest: Lungs are clear to auscultation with good air entry, patient has pain in the right thoracic region with deep breathing and tenderness over the right posterior rib cage CVS: Regular rate and rhythm S1-S2, no murmurs rubs or gallops, pulses are brisk and equal bilaterally ABD: Soft, nondistended, nontender, no rebound guarding or rigidity, bowel sounds are normal, no pulsatile masses appreciated Extremities: Moving all extremities, there is a superficial abrasion over the right medial knee and bruising to the left knee. Patient has full range of motion of both extremities and is able to flex at the hip and knee bilaterally. There is bruising and swelling of the left great toe with a subungual hematoma. 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, negative pronator drift, positive rapid alternating hand movements, upper and lower extremity strength and sensation is intact Constitutional Vital Signs, click to edit/add: Last Vital Signs Temp 98.6 F 01/31/25 05:15 Pulse 84 01/31/25 09:20 Resp 19 01/31/25 09:05 BP 149/81 H 01/31/25 09:20 Pulse Ox 88 L 01/31/25 07:13 O2 Del Method Room Air 01/31/25 05:15 Course Vital Signs Vital signs: Vital Signs Pulse Oximetry 96 01/31/25 05:14 Temperature 98.6 F 01/31/25 05:15 Pulse Rate 84 01/31/25 09:20 Respiratory Rate 19 01/31/25 09:05 Blood Pressure 149/81 H 01/31/25 09:20 Pulse Oximetry 88 L 01/31/25 07:13 Oxygen Delivery Method Room Air 01/31/25 05:15 MDM - Weakness MDM Narrative Medical decision making narrative: Patient was sent for CT scan of the brain, facial bones and cervical spine. I was called to radiology to review the CT scan of the brain which shows bilateral subdural hematomas. Call was placed to the [facility] transfer center for emergent transfer. he has a normal white count and hemoglobin. Electrolytes are normal. CPK is elevated at 679 and troponin is elevated at 147. Patient was signed out to the incoming physician at 7 AM. Lab Data Attestation: I reviewed the patient's lab results. Labs: Lab Results 01/31/25 01/31/25 01/31/25 Range/Units 05:35 05:43 08:04 WBC 8.6 (4.0-11.0) 10^3/uL RBC 4.47 L (4.70-6.10) 10^6/uL Hgb 14.3 (14.0-18.0) g/dL Hct 41.2 L (42.0-54.0) % MCV 92.2 (80.0-94.0) fL MCH 32.0 (25.9-34.0) pg MCHC 34.7 (29.9-35.2) g/dL RDW 12.1 (11.0-15.0) % Plt Count 259 (150-450) 10^3/uL MPV 9.1 L (9.5-13.5) fL Neut % (Auto) 79.4 H (43.0-75.0) % Lymph % (Auto) 12.9 L (20.5-60.0) % [place] % (Auto) 6.3 (1.7-12.0) % Eos % (Auto) 0.6 L (0.9-7.0) % Baso % (Auto) 0.3 (0.2-2.0) % Neut # (Auto) 6.8 H (1.4-6.5) 10^3/uL Lymph # (Auto) 1.1 L (1.2-3.8) 10^3/uL [place] # (Auto) 0.5 (0.3-0.8) 10^3/uL Eos # (Auto) 0.1 (0.0-0.7) 10^3/uL Baso # (Auto) 0.0 (0.0-0.1) 10^3/uL Abs Immat Gran (auto) 0.04 H (0.00-0.03) 10^3/uL Imm/Tot Granulo (auto) 0.5 (0.0-0.5) % Sodium 140 (136-145) mmol/L Potassium 3.9 (3.5-5.1) mmol/L Chloride 104 (98-107) mmol/L Carbon Dioxide 25.0 (21.0-32.0) mmol/L Anion Gap 14.9 BUN 15.0 (7.0-18.0) mg/dL Creatinine 0.86 (0.70-1.30) mg/dL Est GFR ( Amer) >60 (>=60 mL/min/1.73m^2) Est GFR (Non-Af Amer) >60 (>=60 mL/min/1.73m^2) BUN/Creatinine Ratio 17.4 Glucose 159 H (74-106) mg/dL Lactate 1.1 (0.4-2.0) mmol/L Calcium 9.0 (8.5-10.1) mg/dL Total Bilirubin 0.8 (0.2-1.0) mg/dL AST 32 (15-37) U/L ALT 28 (16-63) U/L Alkaline Phosphatase 89 (46-116) U/L Total Creatine Kinase 679 H* (39-308) U/L Troponin I High Sens 147.3 H* 139.1 H* (4.0-76.1) pg/mL Total Protein 7.2 (6.4-8.2) g/dL Albumin 3.6 (3.4-5.0) g/dL Globulin 3.6 g/dL Albumin/Globulin Ratio 1.0 Urine Color Yellow (YELLOW) Urine Clarity Clear (CLEAR) Urine pH 7.0 (5.0-9.0) Ur Specific [place] 1.020 (1.005-1.025) Urine Protein Trace (NEG/TRACE) mg/dL Urine Glucose (UA) Negative (NEGATIVE) mg/dL Urine Ketones 15 A (NEGATIVE) mg/dL Urine Occult Blood Negative (NEGATIVE) Urine Nitrite Negative (NEGATIVE) Urine Bilirubin Negative (NEGATIVE) Urine Urobilinogen 1.0 (0.2-1.0) EU/dL Ur Leukocyte Esterase Negative (NEGATIVE) Urine RBC 0-2 (0-2) #/HPF Urine WBC 0-2 A (NONE SEEN) #/HPF Ur Squamous Epith Cells Rare (NONE/RARE) #/LPF Urine Crystals None seen (None Seen) #/HPF Urine Bacteria Trace A (NONE SEEN) #/HPF Urine Casts None seen (NONE SEEN) #/LPF Urine Mucus Trace A (NONE SEEN) ECG Data Attestation: I personally reviewed and interpreted this ECG as follows: (Sinus rhythm at 83 bpm, first-degree AV block, normal axis, nonspecific ST changes, no acute ST segment elevation or T wave inversion) Discharge Plan Discharge Chief Complaint: Weakness Clinical Impression: Fall from standing, Bilateral subdural hematomas, Elevated troponin Patient Disposition: [facility] Time of Disposition Decision: 06:54 Discharge Location: [facility] Condition: Fair Mode of Transportation: EMS Discharge Date/Time: 01/31/25 09:51 Documented by User: Hernan Bender MD 01/31/25 08:46 HPI - Weakness General Chief complaint: Weakness Stated complaint: WEAKNESS Time Seen by Provider: 01/31/25 05:19 Related Data Home Medications ?Medication ?Instructions ?Recorded ?Confirmed amlodipine 5 mg tablet 5 mg PO DAILY 01/31/25 01/31/25 aspirin 81 mg tablet,delayed 81 mg PO DAILY 01/31/25 01/31/25 release (Adult Aspirin Regimen) dutasteride 0.5 mg capsule 0.5 mg PO DAILY 01/31/25 01/31/25 latanoprost 0.005 % eye drops 1 drp ophthalmic (eye) DAILY 01/31/25 01/31/25 metformin 500 mg tablet,extended 2,000 mg PO BID 01/31/25 01/31/25 release 24 hr metoprolol succinate 25 mg 25 mg PO DAILY 01/31/25 01/31/25 tablet,extended release 24 hr pravastatin 80 mg tablet 80 mg PO DAILY 01/31/25 01/31/25 tamsulosin 0.4 mg capsule 0.4 mg PO DAILY 01/31/25 01/31/25 timolol maleate 0.5 % eye drops 1 drp ophthalmic (eye) DAILY 01/31/25 01/31/25 trazodone 150 mg tablet 150 mg PO .HS 01/31/25 01/31/25 valsartan 40 mg tablet 40 mg PO BID 01/31/25 01/31/25 Allergies Allergy/AdvReac Type Severity Reaction Status Date / Time No Known Drug Allergies Allergy Verified 01/31/25 05:20 PFSH PFSH Social History Little interest or pleasure in doing things: not at all Feeling down, depressed, or hopeless: not at all Exam Constitutional Vital Signs, click to edit/add: Last Vital Signs Temp 98.6 F 01/31/25 05:15 Pulse 84 01/31/25 09:20 Resp 19 01/31/25 09:05 BP 149/81 H 01/31/25 09:20 Pulse Ox 88 L 01/31/25 07:13 O2 Del Method Room Air 01/31/25 05:15 Course Vital Signs Vital signs: Vital Signs Pulse Oximetry 96 01/31/25 05:14 Temperature 98.6 F 01/31/25 05:15 Pulse Rate 84 01/31/25 09:20 Respiratory Rate 19 01/31/25 09:05 Blood Pressure 149/81 H 01/31/25 09:20 Pulse Oximetry 88 L 01/31/25 07:13 Oxygen Delivery Method Room Air 01/31/25 05:15 MDM - Weakness MDM Narrative Medical decision making narrative: Patient was sent for CT scan of the brain, facial bones and cervical spine. I was called to radiology to review the CT scan of the brain which shows bilateral subdural hematomas. Call was placed to the [facility] transfer center for emergent transfer. he has a normal white count and hemoglobin. Electrolytes are normal. CPK is elevated at 679 and troponin is elevated at 147. Lab Data Labs: Lab Results 01/31/25 01/31/25 01/31/25 Range/Units 05:35 05:43 08:04 WBC 8.6 (4.0-11.0) 10^3/uL RBC 4.47 L (4.70-6.10) 10^6/uL Hgb 14.3 (14.0-18.0) g/dL Hct 41.2 L (42.0-54.0) % MCV 92.2 (80.0-94.0) fL MCH 32.0 (25.9-34.0) pg MCHC 34.7 (29.9-35.2) g/dL RDW 12.1 (11.0-15.0) % Plt Count 259 (150-450) 10^3/uL MPV 9.1 L (9.5-13.5) fL Neut % (Auto) 79.4 H (43.0-75.0) % Lymph % (Auto) 12.9 L (20.5-60.0) % [place] % (Auto) 6.3 (1.7-12.0) % Eos % (Auto) 0.6 L (0.9-7.0) % Baso % (Auto) 0.3 (0.2-2.0) % Neut # (Auto) 6.8 H (1.4-6.5) 10^3/uL Lymph # (Auto) 1.1 L (1.2-3.8) 10^3/uL [place] # (Auto) 0.5 (0.3-0.8) 10^3/uL Eos # (Auto) 0.1 (0.0-0.7) 10^3/uL Baso # (Auto) 0.0 (0.0-0.1) 10^3/uL Abs Immat Gran (auto) 0.04 H (0.00-0.03) 10^3/uL Imm/Tot Granulo (auto) 0.5 (0.0-0.5) % Sodium 140 (136-145) mmol/L Potassium 3.9 (3.5-5.1) mmol/L Chloride 104 (98-107) mmol/L Carbon Dioxide 25.0 (21.0-32.0) mmol/L Anion Gap 14.9 BUN 15.0 (7.0-18.0) mg/dL Creatinine 0.86 (0.70-1.30) mg/dL Est GFR ( Amer) >60 (>=60 mL/min/1.73m^2) Est GFR (Non-Af Amer) >60 (>=60 mL/min/1.73m^2) BUN/Creatinine Ratio 17.4 Glucose 159 H (74-106) mg/dL Lactate 1.1 (0.4-2.0) mmol/L Calcium 9.0 (8.5-10.1) mg/dL Total Bilirubin 0.8 (0.2-1.0) mg/dL AST 32 (15-37) U/L ALT 28 (16-63) U/L Alkaline Phosphatase 89 (46-116) U/L Total Creatine Kinase 679 H* (39-308) U/L Troponin I High Sens 147.3 H* 139.1 H* (4.0-76.1) pg/mL Total Protein 7.2 (6.4-8.2) g/dL Albumin 3.6 (3.4-5.0) g/dL Globulin 3.6 g/dL Albumin/Globulin Ratio 1.0 Urine Color Yellow (YELLOW) Urine Clarity Clear (CLEAR) Urine pH 7.0 (5.0-9.0) Ur Specific [place] 1.020 (1.005-1.025) Urine Protein Trace (NEG/TRACE) mg/dL Urine Glucose (UA) Negative (NEGATIVE) mg/dL Urine Ketones 15 A (NEGATIVE) mg/dL Urine Occult Blood Negative (NEGATIVE) Urine Nitrite Negative (NEGATIVE) Urine Bilirubin Negative (NEGATIVE) Urine Urobilinogen 1.0 (0.2-1.0) EU/dL Ur Leukocyte Esterase Negative (NEGATIVE) Urine RBC 0-2 (0-2) #/HPF Urine WBC 0-2 A (NONE SEEN) #/HPF Ur Squamous Epith Cells Rare (NONE/RARE) #/LPF Urine Crystals None seen (None Seen) #/HPF Urine Bacteria Trace A (NONE SEEN) #/HPF Urine Casts None seen (NONE SEEN) #/LPF Urine Mucus Trace A (NONE SEEN) Discharge Plan Discharge Chief Complaint: Weakness Clinical Impression: Fall from standing, Bilateral subdural hematomas, Elevated troponin Patient Disposition: [facility] Time of Disposition Decision: 06:54 Discharge Location: [facility] Condition: Fair Mode of Transportation: EMS Discharge Date/Time: 01/31/25 09:51
[2025-01-31 05:46] LABS: Basophils Percent Auto 0.3 % (0.2-2.0); Eosinophils Absolute Auto 0.1 10^3/uL (0.0-0.7); Eosinophils Percent Auto 0.6 % (0.9-7.0); Hematocrit 41.2 % (42.0-54.0); Hemoglobin 14.3 g/dL (14.0-18.0); Immature Granulocytes Abs Auto 0.04 10^3/uL (0.00-0.03); Immature Granulocytes Pct Auto 0.5 % (0.0-0.5); Lymphocytes Absolute Auto 1.1 10^3/uL (1.2-3.8); Lymphocytes Percent Auto 12.9 % (20.5-60.0); Mean Corpuscular HGB Conc 34.7 g/dL (29.9-35.2); Mean Corpuscular Volume 92.2 fL (80.0-94.0); Mean Platelet Volume 9.1 fL (9.5-13.5); Monocytes Absolute Auto 0.5 10^3/uL (0.3-0.8); Monocytes Percent Auto 6.3 % (1.7-12.0); Neutrophils Absolute Auto 6.8 10^3/uL (1.4-6.5); Neutrophils Percent Auto 79.4 % (43.0-75.0); Platelet Count 259 10^3/uL (150-450); Red Blood Count 4.47 10^6/uL (4.70-6.10); Red Cell Distribution Width 12.1 % (11.0-15.0); White Blood Count 8.6 10^3/uL (4.0-11.0)
[2025-01-31 06:05] LABS: Lactate/Lactic Acid 1.1 mmol/L (0.4-2.0)
[2025-01-31] MEDS: ACETAMINOPHEN 325 MG TABLET 650 MG PO (06:05)
[2025-01-31] MEDS: 0.9 % SODIUM CHLORIDE 1,000 ML 1000 ML IV (06:06)
[2025-01-31 06:07] LABS: Bilirubin Urine NEGATIVE (NEGATIVE); Blood Urine NEGATIVE (NEGATIVE); Clarity Urine CLEAR (CLEAR); Color Urine YELLOW (YELLOW); Glucose Urine UA NEGATIVE (NEGATIVE); Ketones Urine 15 mg/dL (NEGATIVE); Leukocyte Esterase Urine NEGATIVE (NEGATIVE); Nitrite Urine NEGATIVE (NEGATIVE); Protein Urine TRACE mg/dL (NEG/TRACE)
[2025-01-31 06:14] LABS: Alanine Aminotransferase 28 U/L (16-63); Albumin Level 3.6 g/dL (3.4-5.0); Alkaline Phosphatase 89 U/L (46-116); Anion Gap 14.9; Aspartate Amino Transferase 32 U/L (15-37); BUN Creatinine Ratio 17.4; Bilirubin Total 0.8 mg/dL (0.2-1.0); Chloride 104 mmol/L (98-107); Estimated GFR (African America >60 (>=60 mL/min/1.73m^2); Estimated GFR (Non-African Ame >60 (>=60 mL/min/1.73m^2); Globulin 3.6 g/dL; Glucose 159 mg/dL (74-106); Potassium 3.9 mmol/L (3.5-5.1); Sodium 140 mmol/L (136-145); Total Protein 7.2 g/dL (6.4-8.2)
[2025-01-31 06:24] LABS: Creatine Kinase 679 U/L (39-308); Troponin I High Sensitivity 147.3 pg/mL (4.0-76.1)
[2025-01-31 06:35] LABS: Bacteria Urine TRACE #/HPF (NONE SEEN); Cast Seen? NONE SEEN #/LPF (NONE SEEN); Crystals Seen? None Seen #/HPF (None Seen); Mucus Urine TRACE (NONE SEEN); RBC Urine 0-2 #/HPF (0-2); Squamous Epithelial Cell Urine RARE #/LPF (NONE/RARE); WBC Urine 0-2 #/HPF (NONE SEEN)
--- NOTE | 2025-01-31 08:02 | ED.GENADUL1 ---
HPI HPI - General Adult General Chief complaint: Weakness Stated complaint: WEAKNESS Time Seen by Provider: 01/31/25 05:19 Source: patient Mode of arrival: ambulance Limitations: no limitations History of Present Illness HPI narrative: 74-year-old male presents to the emergency department and was initially seen by Dr. Jones and signed out to me after discussing the case with her thoroughly. Please see her full history and physical exam. Related Data Home Medications ?Medication ?Instructions ?Recorded ?Confirmed amlodipine 5 mg tablet 5 mg PO DAILY 01/31/25 01/31/25 aspirin 81 mg tablet,delayed 81 mg PO DAILY 01/31/25 01/31/25 release (Adult Aspirin Regimen) dutasteride 0.5 mg capsule 0.5 mg PO DAILY 01/31/25 01/31/25 latanoprost 0.005 % eye drops 1 drp ophthalmic (eye) DAILY 01/31/25 01/31/25 metformin 500 mg tablet,extended 2,000 mg PO BID 01/31/25 01/31/25 release 24 hr metoprolol succinate 25 mg 25 mg PO DAILY 01/31/25 01/31/25 tablet,extended release 24 hr pravastatin 80 mg tablet 80 mg PO DAILY 01/31/25 01/31/25 tamsulosin 0.4 mg capsule 0.4 mg PO DAILY 01/31/25 01/31/25 timolol maleate 0.5 % eye drops 1 drp ophthalmic (eye) DAILY 01/31/25 01/31/25 trazodone 150 mg tablet 150 mg PO .HS 01/31/25 01/31/25 valsartan 40 mg tablet 40 mg PO BID 01/31/25 01/31/25 Allergies Allergy/AdvReac Type Severity Reaction Status Date / Time No Known Drug Allergies Allergy Verified 01/31/25 05:20 Opioid HPI Opioid Management Most Recent Opioid Data: Last Pain Scale 5 01/31/25 06:05 01/31/25 Last ED Pain Assessment 01/31/25 05:47 Last MAR Pain Assessment 01/31/25 06:05 PFSH PFSH Social History Little interest or pleasure in doing things: not at all Feeling down, depressed, or hopeless: not at all Exam Constitutional Vital Signs, click to edit/add: Last Vital Signs Temp 98.6 F 01/31/25 05:15 Pulse 59 L 01/31/25 08:10 Resp 25 H 01/31/25 06:30 BP 144/76 H 01/31/25 07:30 Pulse Ox 88 L 01/31/25 07:13 O2 Del Method Room Air 01/31/25 05:15 Course Vital Signs Vital signs: Vital Signs Pulse Oximetry 96 01/31/25 05:14 Temperature 98.6 F 01/31/25 05:15 Pulse Rate 59 L 01/31/25 08:10 Respiratory Rate 25 H 01/31/25 06:30 Blood Pressure 144/76 H 01/31/25 07:30 Pulse Oximetry 88 L 01/31/25 07:13 Oxygen Delivery Method Room Air 01/31/25 05:15 Medical Decision Making MDM Narrative Medical decision making narrative: CT brain shows bilateral subdural hematomas with negative CT C-spine. Initial troponin is elevated with repeat down slightly. I have spoken to Dr. Babb at [facility] who accepted the patient. The patient is stable and agreeable for transfer. Differential Diagnosis Differential Diagnosis: Head contusion, epidural hematoma, subdural hematoma, subarachnoid hemorrha Lab Data Lab results reviewed: Yes I reviewed the patient's lab results Labs: Lab Results 01/31/25 01/31/25 01/31/25 Range/Units 05:35 05:43 08:04 WBC 8.6 (4.0-11.0) 10^3/uL RBC 4.47 L (4.70-6.10) 10^6/uL Hgb 14.3 (14.0-18.0) g/dL Hct 41.2 L (42.0-54.0) % MCV 92.2 (80.0-94.0) fL MCH 32.0 (25.9-34.0) pg MCHC 34.7 (29.9-35.2) g/dL RDW 12.1 (11.0-15.0) % Plt Count 259 (150-450) 10^3/uL MPV 9.1 L (9.5-13.5) fL Neut % (Auto) 79.4 H (43.0-75.0) % Lymph % (Auto) 12.9 L (20.5-60.0) % [place] % (Auto) 6.3 (1.7-12.0) % Eos % (Auto) 0.6 L (0.9-7.0) % Baso % (Auto) 0.3 (0.2-2.0) % Neut # (Auto) 6.8 H (1.4-6.5) 10^3/uL Lymph # (Auto) 1.1 L (1.2-3.8) 10^3/uL [place] # (Auto) 0.5 (0.3-0.8) 10^3/uL Eos # (Auto) 0.1 (0.0-0.7) 10^3/uL Baso # (Auto) 0.0 (0.0-0.1) 10^3/uL Abs Immat Gran (auto) 0.04 H (0.00-0.03) 10^3/uL Imm/Tot Granulo (auto) 0.5 (0.0-0.5) % Sodium 140 (136-145) mmol/L Potassium 3.9 (3.5-5.1) mmol/L Chloride 104 (98-107) mmol/L Carbon Dioxide 25.0 (21.0-32.0) mmol/L Anion Gap 14.9 BUN 15.0 (7.0-18.0) mg/dL Creatinine 0.86 (0.70-1.30) mg/dL Est GFR ( Amer) >60 (>=60 mL/min/1.73m^2) Est GFR (Non-Af Amer) >60 (>=60 mL/min/1.73m^2) BUN/Creatinine Ratio 17.4 Glucose 159 H (74-106) mg/dL Lactate 1.1 (0.4-2.0) mmol/L Calcium 9.0 (8.5-10.1) mg/dL Total Bilirubin 0.8 (0.2-1.0) mg/dL AST 32 (15-37) U/L ALT 28 (16-63) U/L Alkaline Phosphatase 89 (46-116) U/L Total Creatine Kinase 679 H* (39-308) U/L Troponin I High Sens 147.3 H* 139.1 H* (4.0-76.1) pg/mL Total Protein 7.2 (6.4-8.2) g/dL Albumin 3.6 (3.4-5.0) g/dL Globulin 3.6 g/dL Albumin/Globulin Ratio 1.0 Urine Color Yellow (YELLOW) Urine Clarity Clear (CLEAR) Urine pH 7.0 (5.0-9.0) Ur Specific [place] 1.020 (1.005-1.025) Urine Protein Trace (NEG/TRACE) mg/dL Urine Glucose (UA) Negative (NEGATIVE) mg/dL Urine Ketones 15 A (NEGATIVE) mg/dL Urine Occult Blood Negative (NEGATIVE) Urine Nitrite Negative (NEGATIVE) Urine Bilirubin Negative (NEGATIVE) Urine Urobilinogen 1.0 (0.2-1.0) EU/dL Ur Leukocyte Esterase Negative (NEGATIVE) Urine RBC 0-2 (0-2) #/HPF Urine WBC 0-2 A (NONE SEEN) #/HPF Ur Squamous Epith Cells Rare (NONE/RARE) #/LPF Urine Crystals None seen (None Seen) #/HPF Urine Bacteria Trace A (NONE SEEN) #/HPF Urine Casts None seen (NONE SEEN) #/LPF Urine Mucus Trace A (NONE SEEN) Imaging Data CT C-spine, CT brain, CT facial bones: Radiologist's impression: CT brain: Large bilateral subdural hematomas more prominent on the left side with mass effect CT C-spine: Degenerative changes CT facial bones: no acute process Right rib x-rays: No rib fracture Left great toe: No fracture or dislocation Discharge Plan Discharge Chief Complaint: Weakness Clinical Impression: Fall from standing, Bilateral subdural hematomas, Elevated troponin Patient Disposition: [facility] Time of Disposition Decision: 06:54 Discharge Location: [facility] Condition: Fair Mode of Transportation: EMS
[2025-01-31 08:31] LABS: Troponin I High Sensitivity 139.1 pg/mL (4.0-76.1)
== END 2025-01-31 09:51 | disposition short-term general hospital (02) ==
PROVIDERS: Emergency Medicine; Emergency Provider Emergency Medicine; PCP Family Medicine
DX: S06.5X0A Traumatic subdural hemorrhage without loss of consciousness, initial encounter (principal); W18.39XA Other fall on same level, initial encounter; R79.89 Other specified abnormal findings of blood chemistry; R07.81 Pleurodynia; S90.212A Contusion of left great toe with damage to nail, initial encounter; S80.211A Abrasion, right knee, initial encounter; S80.02XA Contusion of left knee, initial encounter
CPT/HCPCS: 36415; 70450; 70486; 71101; 72125; 73660; 80053; 81001; 82550; 83605; 84484; 85025; 93005; 96360; 96361; 99285